=== PATIENT | female | born 1955 | race Caucasian/White ===

== ENCOUNTER 2017-10-17 00:46 | Observation (INO) ==
[2017-10-17] MEDS ORDERED: 0.9 % Sodium Chloride 1,000 ML IVC ONE (01:07)
[2017-10-17] MEDS ORDERED: Ondansetron 4 MG/2 ML VIAL IVP ONE ×2 (01:07→13:27)
[2017-10-17] MEDS ORDERED: Isovue-370 500 ML INFUS..BTL IV ONE (01:08)
--- NOTE | 2017-10-17 01:13 | Emergency Department Note ---
Disposition Clinical Impression: Nephrolithiasis UTI (urinary tract infection) Qualifiers: Urinary tract infection type: acute cystitis Hematuria presence: with hematuria Qualified Code(s): N30.01 - Acute cystitis with hematuria Disposition: Home, Self-Care Condition: Fair General Adult HPI - General Chief complaint: ED Abdominal Pain Stated complaint: urinating blood, flank pain Time Seen by Provider: 10/17/17 00:53 Source: patient Mode of arrival: ambulatory Limitations: no limitations Nursing Notes Reviewed: Yes Vital Signs Reviewed: Yes - History of Present Illness HPI Narrative: Patient is a 61-year-old female with past medical history of hypertension, diabetes, cholecystectomy, and hysterectomy presents for evaluation of left- sided flank pain and hematuria. The patient states her symptoms started yesterday morning when she noticed there was a red tinge to her urine. She also had gradual onset of left-sided flank abdominal pain that she states is a 8 /10 stabbing pain has been constant since onset. She does not notice any alleviating factors. She denies history of kidney stones. Patient denies fevers, chills, chest pain, or shortness of breath. States she had 5 episodes of emesis today, non-bloody. Pain Scale: 9 - Related Data Home Medications Medication Instructions Recorded Confirmed Fluticasone/Salmeterol [Advair 1 puff IH BID 09/17/15 10/17/17 500-50 Diskus] Lisinopril [Zestril] 40 mg PO DAILY 09/17/15 10/17/17 amLODIPine [Norvasc] 10 mg PO DAILY 09/17/15 10/17/17 buPROPion HCl [Bupropion HCl Sr] 200 mg PO BID 09/17/15 10/17/17 glyBURIDE [GlyBURIDE] 1.25 mg PO DAILY 09/17/15 10/17/17 metFORMIN [Glucophage] 500 mg PO BID 09/17/15 10/17/17 Clopidogrel [Plavix] 75 mg PO DAILY 10/17/17 10/17/17 Escitalopram [Lexapro] 10 mg PO DAILY 10/17/17 10/17/17 Gabapentin [Neurontin] 300 mg PO TID 10/17/17 10/17/17 Metoprolol Succinate 200 mg PO DAILY 10/17/17 10/17/17 Ranitidine HCl [Acid Shoe Folder] 75 mg PO BID 10/17/17 10/17/17 Rosuvastatin Calcium [Crestor] 40 mg PO HS 10/17/17 10/17/17 hydroCHLOROthiazide 25 mg PO DAILY 10/17/17 10/17/17 [Hydrochlorothiazide] Allergies Allergy/AdvReac Type Severity Reaction Status Date / Time No Known Allergies Allergy Unverified 10/17/17 16:13 All systems ED: reviewed and negative except as stated. Review of Systems: As Per HPI Constitutional: Denies: fever, chills Cardiovascular: Denies: chest pain, palpitations Respiratory: Denies: cough, dyspnea, wheezes Gastrointestinal: Reports: abdominal pain, nausea, vomiting, diarrhea (x1 episode yesterday. Normal BM today. ) Genitourinary: Reports: hematuria. Denies: urgency, dysuria, frequency Musculoskeletal: Reports: back pain (left flank) Integumentary: Denies: rash, abrasion Neurological: Denies: headache Past Medical History - Past Medical History Attestation: Yes The following information was validated with the patient. Medical history: Reports: COPD, diabetes, hyperlipidemia, hypertension Psychiatric history: Reports: no psych history - Social History Smoking Status: Current every day smoker Smokeless Tobacco Status: No Alcohol use: Reports: none Drug use: Reports: none Physical Exam CONSTITUTIONAL: Alert and oriented X3, well-nourished, well appearing, in no apparent distress HEAD: Normocephalic; atraumatic. EYES: PERRL, no scleral icterus. NOSE: The nose is normal in appearance without rhinorrhea RESP: Normal chest excursion with respiration; breath sounds clear and equal bilaterally; no wheezes, rhonchi, or rales CARD: Regular rhythm, without murmurs, rub or gallop BACK: Left flank pain. ABD: Non-distended; tenderness in the left abdomen mildly with palpation, no guarding, rebound, or rigidity. SKIN: Normal for age and race; warm and dry; no apparent lesions Course Course Narrative: Patient's CT scan reveals a 5 similar stone located at the UVJ the left. Chest is urinary tract infection given that the patient has no infection with a stone presents to be admitted for IV antibiotics with consultation to urology, Dr. Cannon. I discussed the patient's case with the hospitalist on-call and they agree to accept. Vital Signs Temperature 98.2 F 10/17/17 00:47 Pulse Rate 77 10/17/17 00:47 Respiratory Rate 18 10/17/17 00:47 Blood Pressure 183/91 10/17/17 00:47 O2 Sat by Pulse Oximetry 97 10/17/17 00:47 Temperature 98.6 F 10/17/17 23:26 Pulse Rate 77 10/17/17 23:26 Respiratory Rate 16 10/17/17 23:26 Blood Pressure 147/65 10/17/17 23:26 O2 Sat by Pulse Oximetry 90 10/17/17 23:26 Oxygen Delivery Oxygen Delivery Room Air Medical Decision Making - Medical Records Medical records reviewed: Yes I reviewed the patient's medical records. - Lab Data Lab results reviewed: Yes I reviewed the patient's lab results. Result diagrams: 10/17/17 02:00 10/17/17 02:00 Lab Results 10/17/17 10/17/17 10/17/17 Range/Units 02:00 02:00 02:40 WBC 9.2 (4.3-11.1) K/mcL RBC 4.24 (3.82-4.97) M/mcL Hgb 13.2 (11.5-15.4) g/dL Hct 39.5 (35.3-44.9) % MCV 93.2 (83.0-100.0) fL MCH 31.1 (28.0-33.3) pg MCHC 33.4 (31.6-35.5) g/dL RDW 14.6 H (11.5-14.5) % Plt Count 234 (140-400) K/mcL MPV 9.8 (9.4-12.4) fL Immature Gran % 0.2 (0-4) % Seg Neutrophils % 80.9 % Lymphocytes % 13.3 % Monocytes % 4.5 % Eosinophils % 0.8 % Basophils % 0.3 % Neutrophils # 7.5 (1.6-8.9) K/mcL Lymphocytes # 1.2 (0.6-4.6) K/mcL Monocytes # 0.4 (0.0-1.3) K/mcL Eosinophils # 0.1 (0.0-0.6) K/mcL Basophils # 0.0 (0.0-0.2) K/mcL Sodium 139 (136-145) mEq/L Potassium 4.6 (3.5-5.1) mEq/L Chloride 105 (98-107) mEq/L Carbon Dioxide 28 (23-29) mEq/L BUN 29 H (8-23) mg/dL Creatinine 1.02 (0.60-1.20) mg/dL Est GFR ( Amer) > 60 (> 60) Est GFR (Non-Af Amer) 55 L (> 60) BUN/Creatinine Ratio 28 H (6-26) Glucose 182 H (70-105) mg/dL Calculated Osmolality 298 (280-300) Calcium 9.9 (8.6-10.3) mg/dL Total Bilirubin 0.5 (0.3-1.0) mg/dL Direct Bilirubin 0.1 (0.0-0.2) mg/dL Indirect Bilirubin 0.4 (0.0-1.2) mg/dL AST 11 L (13-39) Units/L ALT 9 (7-52) Units/L Alkaline Phosphatase 58 (34-104) Units/L Serum Total Protein 7.1 (6.4-8.9) g/dL Albumin 4.4 (3.5-5.7) g/dL Globulin 2.7 (2.4-3.5) g/dL Albumin/Globulin Ratio 1.6 (1.1-2.2) Lipase 24 (11-82) Units/L Urine Color Yellow (Yellow) Urine Clarity Cloudy A (Clear) Urine pH 6.0 (5.0-8.0) pH Units Ur Specific [place] 1.023 (1.010-1.025) Urine Protein 30 H (Neg-Trace) mg/dL Urine Glucose (UA) Normal (Normal) mg/dL Urine Ketones Negative (Negative) mg/dL Urine Blood Large H (Negative) Urine Nitrite Positive A (Negative) Urine Bilirubin Negative (Negative) Urine Urobilinogen Normal (Normal) mg/dL Ur Leukocyte Esterase Large H (Negative) Urine Microscopic RBC TNTC H (0-3) per hpf Urine Microscopic WBC TNTC H (0-3) per hpf Ur Squamous Epith Cells Few (None-Few) per lpf Urine Bacteria Many H (None-Few) per hpf Hyaline Casts None Seen (None-Few) per lpf Ur Culture Indicated? YES A (NO) - Radiology Data Radiology results reviewed: Yes I reviewed the patient's radiology results. Abdomen/Pelvis CT 10/17/17 01:08 IMPRESSION: Several small (sub 5 mm) stones at left ureteropelvic junction with mild upstream hydronephrosis. Nondependent gas within the urinary bladder. Correlate for any history of instrumentation. Otherwise correlate with urinalysis to exclude cystitis. Hepatomegaly. D/ / Michael Burr / Michael Burr Interpreting Provider: Michael Burr Attestation Statement - Attestation Attestation: I examined this patient and my medical decision-making was reviewed with the Resident Physician. I agree with the documented findings, disposition and treatment plan as described except to the extent set forth below. Findings consistent with infected stone. Plan to start ceftriaxone, admitted to the hospital, consult urology. Patient will require admission for infected kidney stone.
[2017-10-17] MEDS ORDERED: *HR* FentaNYL (PF) 100 MCG/2 ML VIAL IVP ONE (01:14)
[2017-10-17 02:16] LABS: Basophils % 0.3 %; Eosinophils # 0.1 K/mcL (0.0-0.6); Eosinophils % 0.8 %; Hematocrit 39.5 % (35.3-44.9); Hemoglobin 13.2 g/dL (11.5-15.4); Immature Granulocytes % 0.2 % (0-4); Lymphocytes # 1.2 K/mcL (0.6-4.6); Lymphocytes % 13.3 %; Mean Corpuscular HGB Conc 33.4 g/dL (31.6-35.5); Mean Corpuscular Hemoglobin 31.1 pg (28.0-33.3); Mean Corpuscular Volume 93.2 fL (83.0-100.0); Mean Platelet Volume 9.8 fL (9.4-12.4); Monocytes # 0.4 K/mcL (0.0-1.3); Monocytes % 4.5 %; Neutrophils # 7.5 K/mcL (1.6-8.9); Platelet Count 234 K/mcL (140-400); Red Blood Count 4.24 M/mcL (3.82-4.97); Red Cell Distribution Width 14.6 % (11.5-14.5); Segmented Neutrophils % 80.9 %
[2017-10-17 02:40] LABS: Alanine Aminotransferase 9 Units/L (7-52); Albumin 4.4 g/dL (3.5-5.7); Albumin/Globulin Ratio 1.6 (1.1-2.2); Alkaline Phosphatase 58 Units/L (34-104); Aspartate Amino Transferase 11 Units/L (13-39); BUN/Creatinine Ratio 28 (6-26); Bilirubin,Direct 0.1 mg/dL (0.0-0.2); Bilirubin,Indirect 0.4 mg/dL (0.0-1.2); Bilirubin,Total 0.5 mg/dL (0.3-1.0); Blood Urea Nitrogen 29 mg/dL (8-23); Calcium 9.9 mg/dL (8.6-10.3); Carbon Dioxide 28 mEq/L (23-29); Chloride 105 mEq/L (98-107); Globulin 2.7 g/dL (2.4-3.5); Glucose 182 mg/dL (70-105); Lipase 24 Units/L (11-82); Osmolality,Calculated 298 (280-300); Potassium 4.6 mEq/L (3.5-5.1); Sodium 139 mEq/L (136-145); Total Protein 7.1 g/dL (6.4-8.9); eGFR For African Americans > 60 (> 60); eGFR For Non-African Americans 55 (> 60)
[2017-10-17 02:49] LABS: Bilirubin,Urine Negative (Negative); Blood,Urine Large (Negative); Clarity,Urine Cloudy (Clear); Color,Urine Yellow (Yellow); Glucose,Urine (UA) Normal (Normal); Ketones,Urine Negative (Negative); Leukocyte Esterase,Urine Large (Negative); Nitrite,Urine Positive (Negative); Protein,Urine 30 mg/dL (Neg-Trace); Specific Gravity,Urine 1.023 (1.010-1.025); Urobilinogen,Urine Normal (Normal)
[2017-10-17 02:51] LABS: Bacteria,Urine Many per hpf (None-Few); Hyaline Casts,Urine None Seen per lpf (None-Few); Squamous Epithelial Cell,Urine Few per lpf (None-Few); WBC,Urine TNTC per hpf (0-3)
[2017-10-17 03:06] LABS: RBC,Urine TNTC per hpf (0-3)
[2017-10-17] MEDS ORDERED: cefTRIAXone 1,000 MG in Water for inj. (sterile) 20 ML 10 ML IVP ONE (04:50)
[2017-10-17] MEDS ORDERED: Ketorolac 15 MG/ML VIAL IVP ONE (05:31)
[2017-10-17] MEDS ORDERED: Naloxone 0.4 MG/ML INJ IVP PRN ×2 (07:58→15:53)
[2017-10-17] MEDS ORDERED: *HR* OxyCODONE Immed Rel 5 MG TABLET PO PRN ×3 (07:58→15:53)
[2017-10-17] MEDS ORDERED: Acetaminophen 325 MG TABLET PO PRN ×2 (07:58→15:53)
[2017-10-17] MEDS ORDERED: *HR* HYDROcodone/Acet 5/325 mg TABLET PO PRN ×2 (07:58→15:53)
[2017-10-17] MEDS ORDERED: Ringers Solution, Lactated 1,000 ML IVC SCH (08:00)
[2017-10-17] MEDS ORDERED: D5% in Water 1,000 ML IVC PRN ×2 (08:00→15:53)
[2017-10-17] MEDS ORDERED: Dextrose Gel 15 GM/37.5 ML TUBE PO PRN ×4 (08:00→15:53)
[2017-10-17] MEDS ORDERED: *HR* Dextrose 50 % in Water (Syg) 50 ML SYRINGE IVP PRN ×2 (08:00→15:53)
--- NOTE | 2017-10-17 08:06 | Internal Med History&Physical ---
Date of Encounter: 10/17/17 Time of Encounter: 07:45 Internal Medicine - H&P: HPI Chief complaint: Nausea, vomiting, right-sided flank pain, hematuria Admitted From: Emergency Dept History of present illness: Ms. Gale is a 61 year old female patient with history of essential hypertension , diabetes who presented to the ER with complaints of right-sided flank pain/ lower quadrant abdominal pain 8 out of 10 in severity, along with nausea or vomiting and hematuria. She had one episode of hematuria earlier this morning. She denies any fevers or chills. No chest pain or palpitations. No hematemesis. No prior history of nephrolithiasis. Past Med Surg Social Fam HX - Past Medical History Attestation: Yes The following information was validated with the patient. Source: patient Medical history: COPD, diabetes, hyperlipidemia, hypertension Psychiatric history: no psych history - Past Surgical History Additional surgical history: pt hyst, choley - Social History Smoking Status: Current every day smoker Smokeless Tobacco Status: No Alcohol use: none Drug use: none - Additional Family History Additional family history: Family history reviewed and found to be noncontributory at this time. Internal Medicine - H&P: Meds Alendronate Sodium [Fosamax] 70 mg PO QWEEK 09/17/15 [History] Aspirin Enteric Coated [Aspirin EC] 81 mg PO DAILY 09/17/15 [History] Citalopram Hydrobromide [Celexa] 20 mg PO DAILY 09/17/15 [History] Fluticasone/Salmeterol [Advair 500-50 Diskus] 1 each IH BID 09/17/15 [History] Ipratropium/Albuterol Neb [Duoneb] 3 ml IH Q6HR PRN 09/17/15 [History] Lisinopril [Zestril] 40 mg PO DAILY 09/17/15 [History] Metoprolol Succinate 200 mg PO DAILY 09/17/15 [History] Rosuvastatin [Crestor] 20 mg PO HS 09/17/15 [History] amLODIPine [Norvasc] 10 mg PO DAILY 09/17/15 [History] buPROPion HCl [Bupropion HCl Sr] 200 mg PO BID 09/17/15 [History] glyBURIDE [GlyBURIDE] 1.25 mg PO DAILY 09/17/15 [History] metFORMIN [Glucophage] 500 mg PO BID 09/17/15 [History] Ibuprofen [Motrin] 200 mg PO Q6HR PRN 10/08/15 [History] Lansoprazole [Prevacid] 30 mg PO DAILY 10/08/15 [History] OxyCODONE/APAP 5/325 [Percocet 5/325 MG] 1 tab PO Q4-6H PRN 10/08/15 [History] Ciprofloxacin [Cipro] 500 mg PO TID #9 tablet 10/17/17 [Rx] 3 Allergy/AdvReac Type Severity Reaction Status Date / Time No Known Allergies Allergy Unverified 09/09/15 14:30 All Systems PM: A 10-system review of systems was performed and is negative for pertinent findings except as documented above in the HPI. - Constitutional Constitutional: no chills, no fever(s), no night sweats - EENT Eyes: no change in vision, no discharge, no pain, no photophobia Ears: no ear discharge, no ear pain, no tinnitus Nose, mouth and throat: no dysphagia, no nasal discharge, no neck pain, no sore throat - Cardiovascular Cardiovascular ROS IM: no chest pain, no diaphoresis, no dyspnea, no lightheadedness, no palpitations, no syncope - Respiratory Respiratory: no cough, no dyspnea, no wheezing, no excessive phlegm production - Gastrointestinal Gastrointestinal: nausea, vomiting, no abdominal pain, no diarrhea, no hematemesis, no hematochezia, no melena - Genitourinary Genitourinary: dysuria, flank pain, hematuria, no change in urinary stream - Musculoskeletal Musculoskeletal ROS IM: no numbness, no tingling - Integumentary Integumentary IM: no rash, no unusual bruising - Neurological Neurological ROS: no confusion, no convulsions, no focal weakness, no numbness, no tingling, no tremor(s) - Constitutional Vitals: Temp Pulse Resp BP Pulse Ox 98.0 F 70 14 146/82 93 10/17/17 06:57 10/17/17 06:57 10/17/17 06:57 10/17/17 06:57 10/17/17 06:57 General appearance: Present: cooperative, mild distress, A&O X 3, pleasant, obese, answers questions appropriately - Neck Neck exam general surgery: Present: supple, trachea midline. Absent: lymphadenopathy - Respiratory Respiratory exam: Present: CTAB. Absent: accessory muscle use, rales, rhonchi, wheezes - Cardiovascular Cardiovascular exam: Present: RRR, +S1, +S2. Absent: diastolic murmur, gallop, rubs, systolic murmur - GI/Abdominal GI/Abdominal exam: Present: normal bowel sounds, soft, tenderness (Right lower abdominal quadrant), no peritoneal signs. Absent: distended - Extremities Exam Extremities exam: Present: warm, radial pulses palpable and symmetrical. Absent : calf tenderness, cyanotic, pedal edema - Neurological Exam Neurological exam: Present: CN II-XII intact, oriented X3, no focal deficits. Absent: facial droop, speech deficit - Skin Skin exam: Present: dry, intact Internal Med - H&P Results - Labs CBC & Chem 7: 10/17/17 02:00 10/17/17 02:00 - Impressions Impressions Abdomen/Pelvis CT 10/17/17 01:08 IMPRESSION: Several small (sub 5 mm) stones at left ureteropelvic junction with mild upstream hydronephrosis. Nondependent gas within the urinary bladder. Correlate for any history of instrumentation. Otherwise correlate with urinalysis to exclude cystitis. Hepatomegaly. D/ / Michael Burr / Michael Burr Interpreting Provider: Michael Burr - Assessment and plan (1) Ureteral calculus, left Current Visit: Yes Status: Acute Assessment and plan: Multiple stones noted in the left urethrovesical junction with hydronephrosis. Creatinine normal at this time. Consult urology. IV fluids. Pain control and supportive care. Moderate risk for complications. (2) Essential hypertension Current Visit: Yes Status: Chronic Assessment and plan: Monitor blood pressure. Blood pressure is elevated on arrival. It is improving now. We will continue to monitor and continue home medications. (3) Diabetes mellitus, type 2 Current Visit: Yes Status: Chronic Assessment and plan: Place patient on sliding scale insulin. Diabetic diet when she is able to eat. 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 IV antibiotics. Follow culture results. Qualifiers: Urinary tract infection type: acute cystitis Hematuria presence: with hematuria Qualified Code(s): N30.01 - Acute cystitis with hematuria - Time Spent With Patient Total time spent is greater than 50% in coordination of care (as documented) at patient's floor/unit and/or counseling patient:
--- NOTE | 2017-10-17 08:34 | Urology - Consult Note ---
Date of Encounter: 10/17/17 Time of Encounter: 08:32 - Assessment and Plan (1) UTI (urinary tract infection) Current Visit: Yes Status: Acute Assessment and plan: Recommend broad-spectrum antibiotics until cultures return Qualifiers: Urinary tract infection type: acute cystitis Hematuria presence: with hematuria Qualified Code(s): N30.01 - Acute cystitis with hematuria (2) Ureteral calculus, left Current Visit: Yes Status: Acute Assessment and plan: We will plan on taking the patient to the operating room for cystoscopy and left ureteral stent placement today. Urology CN:CELESTINE Consult date: 10/17/17 Reason for consult Urology: Hydronephrosis Requesting physician: Uriel Haji History of present illness: Maggi is a 61-year-old female who presented to the emergency Department secondary to severe left-sided flank pain. She was found to have a urinalysis consistent with a UTI as well as a proximal 5 mm stone on the left side. Patient had mild to moderate hydronephrosis proximal to this. Patient's pain is okay controlled this time. No fevers. No nausea or vomiting. Past Med Surg Social Fam HX - Past Medical History Medical history: COPD, diabetes, hyperlipidemia, hypertension Psychiatric history: no psych history - Past Surgical History Additional surgical history: pt hyst, choley - Social History Smoking Status: Current every day smoker Smokeless Tobacco Status: No Alcohol use: none Drug use: none - Additional Family History Additional family history: Patient denies significant family history of kidney stones Medications and Allergies Alendronate Sodium [Fosamax] 70 mg PO QWEEK 09/17/15 [History] Aspirin Enteric Coated [Aspirin EC] 81 mg PO DAILY 09/17/15 [History] Citalopram Hydrobromide [Celexa] 20 mg PO DAILY 09/17/15 [History] Fluticasone/Salmeterol [Advair 500-50 Diskus] 1 each IH BID 09/17/15 [History] Ipratropium/Albuterol Neb [Duoneb] 3 ml IH Q6HR PRN 09/17/15 [History] Lisinopril [Zestril] 40 mg PO DAILY 09/17/15 [History] Metoprolol Succinate 200 mg PO DAILY 09/17/15 [History] Rosuvastatin [Crestor] 20 mg PO HS 09/17/15 [History] amLODIPine [Norvasc] 10 mg PO DAILY 09/17/15 [History] buPROPion HCl [Bupropion HCl Sr] 200 mg PO BID 09/17/15 [History] glyBURIDE [GlyBURIDE] 1.25 mg PO DAILY 09/17/15 [History] metFORMIN [Glucophage] 500 mg PO BID 09/17/15 [History] Ibuprofen [Motrin] 200 mg PO Q6HR PRN 10/08/15 [History] Lansoprazole [Prevacid] 30 mg PO DAILY 10/08/15 [History] OxyCODONE/APAP 5/325 [Percocet 5/325 MG] 1 tab PO Q4-6H PRN 10/08/15 [History] Ciprofloxacin [Cipro] 500 mg PO TID #9 tablet 10/17/17 [Rx] 3 Allergy/AdvReac Type Severity Reaction Status Date / Time No Known Allergies Allergy Unverified 09/09/15 14:30 Review of Systems - Constitutional no chills, no fever(s) - EENT Nose, mouth and throat: no dizziness - Cardiovascular no chest pain - Respiratory no cough, no dyspnea - Gastrointestinal abdominal pain, no nausea, no vomiting Exam Initial Vital Signs Temp Pulse Resp BP Pulse Ox 98.2 F 77 18 183/91 97 10/17/17 00:47 10/17/17 00:47 10/17/17 00:47 10/17/17 00:47 10/17/17 00:47 General/Neuological: alert and oriented x 3 Eyes: normal pupils, non-icteric Neck: no lymphadenopathy noted, supple to touch ABD: soft, nontender, no masses palpated, good bowel sounds Back: no pain on percussion bilaterally Skin: no rashes noted Musculoskeletal: normal gait, FROMx4 - General physical appearance Present: well developed Urology Results - Labs 10/17/17 02:00 10/17/17 02:00 Abnormal lab results RDW 14.6 % (11.5-14.5) H 10/17/17 02:00 BUN 29 mg/dL (8-23) H 10/17/17 02:00 Est GFR (Non-Af Amer) 55 (> 60) L 10/17/17 02:00 BUN/Creatinine Ratio 28 (6-26) H 10/17/17 02:00 Glucose 182 mg/dL (70-105) H 10/17/17 02:00 POC Glucose 150 mg/dL (70-99) H 10/17/17 06:55 AST 11 Units/L (13-39) L 10/17/17 02:00 Urine Clarity Cloudy (Clear) A 10/17/17 02:40 Urine Protein 30 mg/dL (Neg-Trace) H 10/17/17 02:40 Urine Blood Large (Negative) H 10/17/17 02:40 Urine Nitrite Positive (Negative) A 10/17/17 02:40 Ur Leukocyte Esterase Large (Negative) H 10/17/17 02:40 Urine Microscopic RBC TNTC per hpf (0-3) H 10/17/17 02:40 Urine Microscopic WBC TNTC per hpf (0-3) H 10/17/17 02:40 Urine Bacteria Many per hpf (None-Few) H 10/17/17 02:40 Ur Culture Indicated? YES (NO) A 10/17/17 02:40 All other labs normal. - Imaging CT scan - abdomen: image reviewed CT scan - pelvis: image reviewed Consult Discharge Plan - Plan Referrals: Sean Constantion, B[employer]LING [employer]ER [Primary Care Provider] -
[2017-10-17] MEDS ORDERED: Metoprolol XL (24 HR) Succ 50 MG TAB.ER.24H PO SCH (09:00)
[2017-10-17] MEDS ORDERED: Insulin LISPRO 300 UNITS/3 ML VIAL SQ SCH ×3 (12:00→21:00)
--- NOTE | 2017-10-17 12:36 | Anesthesia Evaluation PreOp ---
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: CVA (Mar 2017; weakness of LUE) Other Medical History: Diabetes Type II, GERD, Other (BMI 44) Anesthesia History: Problems (PONV) Alcohol Use: none Drug use: none Medications and Allergies Alendronate Sodium [Fosamax] 70 mg PO QWEEK 09/17/15 [History] Aspirin Enteric Coated [Aspirin EC] 81 mg PO DAILY 09/17/15 [History] Citalopram Hydrobromide [Celexa] 20 mg PO DAILY 09/17/15 [History] Fluticasone/Salmeterol [Advair 500-50 Diskus] 1 each IH BID 09/17/15 [History] Ipratropium/Albuterol Neb [Duoneb] 3 ml IH Q6HR PRN 09/17/15 [History] Lisinopril [Zestril] 40 mg PO DAILY 09/17/15 [History] Metoprolol Succinate 200 mg PO DAILY 09/17/15 [History] Rosuvastatin [Crestor] 20 mg PO HS 09/17/15 [History] amLODIPine [Norvasc] 10 mg PO DAILY 09/17/15 [History] buPROPion HCl [Bupropion HCl Sr] 200 mg PO BID 09/17/15 [History] glyBURIDE [GlyBURIDE] 1.25 mg PO DAILY 09/17/15 [History] metFORMIN [Glucophage] 500 mg PO BID 09/17/15 [History] Ibuprofen [Motrin] 200 mg PO Q6HR PRN 10/08/15 [History] Lansoprazole [Prevacid] 30 mg PO DAILY 10/08/15 [History] OxyCODONE/APAP 5/325 [Percocet 5/325 MG] 1 tab PO Q4-6H PRN 10/08/15 [History] Ciprofloxacin [Cipro] 500 mg PO TID #9 tablet 10/17/17 [Rx] 3 Allergy/AdvReac Type Severity Reaction Status Date / Time No Known Allergies Allergy Unverified 09/09/15 14:30 - Meds/Allergy Pre-op Review Medications Reviewed: Yes Allergies Reviewed: Yes Beta Blockers on Current Med List: Yes (metoprolol) If Beta Blockers taken, Date/Time (Last Dose taken): 10-17-2017 metoprolol 200 mg 10:04 Anesthesia Results - Labs 10/17/17 02:00 10/17/17 02:00 - Imaging EKG: report reviewed, image reviewed (SINUS RHYTHM LOW QRS VOLTAGE IN PRECORDIAL LEADS POSSIBLE ANTERIOR MYOCARDIAL INFARCTION, PROBABLY OLD) Anesthesia Exam Last Vital Signs Temp 98.3 F 10/17/17 10:37 Pulse 71 10/17/17 10:37 Resp 14 10/17/17 10:37 BP 128/68 10/17/17 10:37 Pulse Ox 93 10/17/17 10:37 Weight: 108 kg - HEENT Pupil (Motor): Pupils equal Mallampati: III Teeth: Edentulous Oral Opening: Greater than 3 - 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
[2017-10-17] MEDS ORDERED: *HR* FentaNYL (PF) 100 MCG/2 ML VIAL ONE (13:24)
[2017-10-17] MEDS ORDERED: *HR* Midazolam HCl 2 MG/2 ML VIAL ONE (13:25)
[2017-10-17] MEDS ORDERED: *HR* Propofol 200 MG/20 ML VIAL IVP ONE (13:25)
[2017-10-17] MEDS ORDERED: Ondansetron 4 MG/2 ML VIAL ONE (13:26)
[2017-10-17] MEDS ORDERED: Dexamethasone 4 MG/ML VIAL ONE (13:26)
[2017-10-17] MEDS ORDERED: Lidocaine -MPF 2% 2 ML VIAL ONE (13:26)
[2017-10-17] MEDS ORDERED: *HR* Labetalol 20 MG/4 ML SYRINGE IVP PRN (13:27)
[2017-10-17] MEDS ORDERED: Dexamethasone 4 MG/ML VIAL IVP ONE (13:27)
[2017-10-17] MEDS ORDERED: *HR* Promethazine 25 MG/ML VIAL IVP PRN ×2 (13:27→14:27)
[2017-10-17] MEDS ORDERED: Scopolamine Patch 1.5 MG PATCH.TD72 ONE (14:21)
[2017-10-17] MEDS ORDERED: Ketorolac 30 MG/ML VIAL ONE (14:51)
--- NOTE | 2017-10-17 14:55 | Operative Note ---
Date of procedure: 10/17/17 Pre-op diagnosis: left upj stone with uti Post-op diagnosis: same Procedure: Cystoscopy and left 6 x 26 cm ureteral stent placement Anesthesia: MYNORA Surgeon: Sammy James Was there an assistant to the ceo present: No Estimated blood loss (cc): 0 Specimen: none Condition: stable Disposition: PACU Procedure in Detail: Patient was prepped and draped in normal sterile fashion. Timeout procedure performed. I then placed the cystoscope into the patient's bladder. I then used the open ended ureteral catheter to cannulate the left ureteral orifice. I then was able to place a Glidewire into the left kidney. I then placed a 6 x 26 cm stent with good curl seen in the left kidney and in the bladder. The bladder was drained procedure was ended. Patient taken to PACU in stable condition
--- NOTE | 2017-10-17 15:41 | Anesthesia Evaluation Post Op ---
Date of Encounter: 10/17/17 Time of Encounter: 15:41 - Vital Signs Vital Signs: Last Vital Signs Temp 97.6 F 10/17/17 15:39 Pulse 64 10/17/17 15:39 Resp 18 10/17/17 15:39 BP 128/66 10/17/17 15:39 Pulse Ox 93 10/17/17 15:39 - Lungs Lungs: Clear Ascult./Percussion - Airway Airway: Non-obstructed - Cardiovascular Regular Rate - Mental Status Mental Status: Alert & Oriented, Answers Appropriately - Pain Pain Scale: 3 - Nausea Vomiting Nausea Vomiting: Not Present - Hydration Hydration: NPO - Discharge PostOp Status: Transfer Patient to floor
[2017-10-17] MEDS: Ringers Solution, Lactated 1,000 ML IVC SCH ×2 (16:01→19:38)
[2017-10-17] MEDS: Gabapentin 300 MG CAPSULE PO SCH (21:45)
[2017-10-17] MEDS: BuPROPion SR (12 HR) 100 MG TABLET PO SCH (21:45)
[2017-10-17] MEDS: Famotidine 20 MG TABLET PO SCH (21:45)
[2017-10-17] MEDS: Budesonide/Formoterol 160/4.5 MDI IH SCH (22:57)
[2017-10-18] MEDS: Ringers Solution, Lactated 1,000 ML IVC SCH (03:23)
[2017-10-18 06:12] LABS: Basophils % 0.4 %; Eosinophils % 0.1 %; Hematocrit 33.1 % (35.3-44.9); Hemoglobin 10.9 g/dL (11.5-15.4); Immature Granulocytes % 0.4 % (0-4); Lymphocytes % 12.8 %; Mean Corpuscular HGB Conc 32.9 g/dL (31.6-35.5); Mean Corpuscular Hemoglobin 29.9 pg (28.0-33.3); Mean Corpuscular Volume 90.9 fL (83.0-100.0); Mean Platelet Volume 10.1 fL (9.4-12.4); Monocytes # 0.5 K/mcL (0.0-1.3); Monocytes % 6.1 %; Neutrophils # 6.2 K/mcL (1.6-8.9); Platelet Count 202 K/mcL (140-400); Red Blood Count 3.64 M/mcL (3.82-4.97); Red Cell Distribution Width 14.6 % (11.5-14.5); Segmented Neutrophils % 80.2 %
[2017-10-18 06:31] LABS: BUN/Creatinine Ratio 34 (6-26); Blood Urea Nitrogen 26 mg/dL (8-23); Calcium 8.9 mg/dL (8.6-10.3); Carbon Dioxide 27 mEq/L (23-29); Chloride 109 mEq/L (98-107); Glucose 146 mg/dL (70-105); Osmolality,Calculated 297 (280-300); Potassium 3.8 mEq/L (3.5-5.1); Sodium 140 mEq/L (136-145); eGFR For African Americans > 60 (> 60); eGFR For Non-African Americans > 60 (> 60)
[2017-10-18] MEDS ORDERED: Insulin LISPRO 300 UNITS/3 ML VIAL SQ SCH (07:30)
--- NOTE | 2017-10-18 07:32 | Urology Progress Note ---
Date of Encounter: 10/18/17 Time of Encounter: 07:30 - Assessment and Plan (1) UTI (urinary tract infection) Current Visit: Yes Status: Acute Assessment and plan: 2 weeks of abx. Qualifiers: Urinary tract infection type: acute cystitis Hematuria presence: with hematuria Qualified Code(s): N30.01 - Acute cystitis with hematuria (2) Ureteral calculus, left Current Visit: Yes Status: Acute Assessment and plan: sp left ureteral stent. Patient will be scheduled by my office for return to the OR in 3-4 weeks. no need for f/u in office. Progress Note Narrative: POD 1 from left ureteral stent placement. patient feeling good. no fevers. Objective Initial Vital Signs Temp Pulse Resp BP Pulse Ox 98.2 F 77 18 183/91 97 10/17/17 00:47 10/17/17 00:47 10/17/17 00:47 10/17/17 00:47 10/17/17 00:47 - General physical appearance Present: well developed, well nourished - Respiratory Present: normal expansion, normal respiratory effort, clear to auscultation - Abdomen Present: soft - Integumentary Present: no rash - Labs 10/18/17 04:25 10/18/17 04:25 Diabetes panel 10/18/17 Range/Units 04:25 Sodium 140 (136-145) mEq/L Potassium 3.8 (3.5-5.1) mEq/L Chloride 109 H (98-107) mEq/L Carbon Dioxide 27 (23-29) mEq/L BUN 26 H (8-23) mg/dL Creatinine 0.76 (0.60-1.20) mg/dL Glucose 146 H (70-105) mg/dL Calcium 8.9 (8.6-10.3) mg/dL Calcium panel 10/18/17 Range/Units 04:25 Calcium 8.9 (8.6-10.3) mg/dL Pituitary panel 10/18/17 Range/Units 04:25 Sodium 140 (136-145) mEq/L Potassium 3.8 (3.5-5.1) mEq/L Chloride 109 H (98-107) mEq/L Carbon Dioxide 27 (23-29) mEq/L BUN 26 H (8-23) mg/dL Creatinine 0.76 (0.60-1.20) mg/dL Glucose 146 H (70-105) mg/dL Calcium 8.9 (8.6-10.3) mg/dL Adrenal panel 10/18/17 Range/Units 04:25 Sodium 140 (136-145) mEq/L Potassium 3.8 (3.5-5.1) mEq/L Chloride 109 H (98-107) mEq/L Carbon Dioxide 27 (23-29) mEq/L BUN 26 H (8-23) mg/dL Creatinine 0.76 (0.60-1.20) mg/dL Glucose 146 H (70-105) mg/dL Calcium 8.9 (8.6-10.3) mg/dL - VTE Documentation of Mechanical Device: Intermittent pneumatic compression device Consult Discharge Plan - Plan Referrals: Sean Constantino CNP [Primary Care Provider] -
[2017-10-18 07:34] VITALS: BP 154/83
[2017-10-18] MEDS: Budesonide/Formoterol 160/4.5 MDI IH SCH (07:45)
--- NOTE | 2017-10-18 08:24 | Discharge Summary ---
- NOTES TO OUTPATIENT PROVIDER Notes to Outpatient Provider: Pt admitted with kidney stone. Underwent stent placement and to have further urologic procedure in future. Has E coli in urine - completing course of abx Date of Encounter: 10/18/17 Time of Encounter: 08:22 - Discharge Diagnosis (1) UTI (urinary tract infection) Priority: Primary Status: Acute Assessment and Plan: Cx showing E coli. Will treat with Cipro outpatient. 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 Gale is a 61 year old female presented to ED with complaints of back pain. Found to have multiple kidney stones and subsequently admitted. Ms Gale was placed in observation. She was seen by urology and had stent placement on 10/17. She tolerated well. Today she feels well. She is urinating a lot but pain improved. She is afebrile. She has E coli in her urine culture. She is ready for discharge home on PO meds. She will have follow up surgery arranged per urology. Discharge discussed with: patient Time spent discussing smoking cessation with patient: 3 to 10 minutes - Time Spent with Patient Total time spent providing and/or coordinating discharge services: 37min - Discharge Medications Prescriptions: Ciprofloxacin HCl [Cipro] 250 mg PO BID #10 tab Home Medications: Fluticasone/Salmeterol [Advair 500-50 Diskus] 1 puff IH BID 09/17/15 [History] Lisinopril [Zestril] 40 mg PO DAILY 09/17/15 [History] amLODIPine [Norvasc] 10 mg PO DAILY 09/17/15 [History] buPROPion HCl [Bupropion HCl Sr] 200 mg PO BID 09/17/15 [History] glyBURIDE [GlyBURIDE] 1.25 mg PO DAILY 09/17/15 [History] metFORMIN [Glucophage] 500 mg PO BID 09/17/15 [History] Clopidogrel [Plavix] 75 mg PO DAILY 10/17/17 [History] Escitalopram [Lexapro] 10 mg PO DAILY 10/17/17 [History] Gabapentin [Neurontin] 300 mg PO TID 10/17/17 [History] Metoprolol Succinate 200 mg PO DAILY 10/17/17 [History] Ranitidine HCl [Acid Passenger Tire Builder] 75 mg PO BID 10/17/17 [History] Rosuvastatin Calcium [Crestor] 40 mg PO HS 10/17/17 [History] hydroCHLOROthiazide [Hydrochlorothiazide] 25 mg PO DAILY 10/17/17 [History] Ciprofloxacin HCl [Cipro] 250 mg PO BID #10 tab 10/18/17 [Rx] Allergies/Adverse Reactions: 3 Allergy/AdvReac Type Severity Reaction Status Date / Time No Known Allergies Allergy Unverified 10/17/17 16:13 Date of admission: 10/17/17 06:05 Primary care physician: Sean Constantino CNP Consults: Yolanda James Discharging clinician: Jacob Brock Anticipated date of discharge: 10/18/17 - Constitutional Vitals: Temp Pulse Resp BP Pulse Ox 97.9 F 67 16 154/83 94 10/18/17 07:33 10/18/17 07:33 10/18/17 07:45 10/18/17 07:33 10/18/17 07:45 General appearance: Present: cooperative, A&O X 3, pleasant, obese, answers questions appropriately - Head Head exam: Present: atraumatic, normocephalic - Eye Eye exam: Present: conjuntiva pink - ENT ENT exam: Present: mucous membranes moist - Respiratory Respiratory exam: Present: CTAB. Absent: rales, rhonchi, wheezes - Cardiovascular Cardiovascular exam: Present: RRR. Absent: tachycardia - GI/Abdominal GI/Abdominal exam: Present: soft. Absent: tenderness - Extremities Exam Extremities exam: Present: warm. Absent: tenderness - Neurological Exam Neurological exam: Present: alert, oriented X3, no focal deficits - Skin Skin exam: Present: dry, warm - Patient Status Disposition: Home, Self-Care Condition: Good Functional capacity at discharge: independent ambulation Overall status at discharge: patient is progressing back to baseline - Discharge Instructions Follow Up With: Sean Constantino CNP [Primary Care Provider] - Additional Instructions: Urology office to call to set up further surgery. No need to follow up in office - Diet and Activity Activity: increase activity as tolerated Diet: advance to your usual diet - VTE Documentation of Mechanical Device: Intermittent pneumatic compression device
[2017-10-18] MEDS: BuPROPion SR (12 HR) 100 MG TABLET PO SCH (08:43)
[2017-10-18] MEDS: Famotidine 20 MG TABLET PO SCH (08:50)
[2017-10-18] MEDS: Gabapentin 300 MG CAPSULE PO SCH (08:50)
[2017-10-18] MEDS ORDERED: Metoprolol XL (24 HR) Succ 50 MG TAB.ER.24H PO SCH (09:00)
[2017-10-18] MEDS ORDERED: cefTRIAXone 1,000 MG in 0.9 % Sodium Chloride Mini Bag 100 ML IVPB SCH (09:00)
[2017-10-18] MEDS ORDERED: amLODIPine 5 MG TABLET PO SCH (09:00)
== END 2017-10-18 12:05 | disposition home or self-care (01) ==
LOC: 3ANU 00:46 → EMEROO 00:46 → SUATTDRO 06:05 → 3ANU 06:19
PROVIDERS: ADMIT Family Medicine; ATTEND Internal Medicine

== ENCOUNTER 2018-12-27 08:29 | Inpatient (IN) ==
[2018-12-27] MEDS ORDERED: 0.9 % Sodium Chloride 2,000 ML ONE (08:55)
[2018-12-27] MEDS ORDERED: *HR* FentaNYL (PF) 100 MCG/2 ML VIAL IVP ONE (08:59)
[2018-12-27] MEDS ORDERED: 0.9 % Sodium Chloride 1,000 ML IVC ONE (08:59)
[2018-12-27] MEDS ORDERED: Pantoprazole 40 MG VIAL IVP ONE (08:59)
[2018-12-27] MEDS ORDERED: Octreotide 50 MCG/ML INJ IVP ONE ×2 (08:59→09:30)
[2018-12-27] MEDS ORDERED: Isovue-370 500 ML BOTTLE IVP ONE ×2 (09:10→09:38)
[2018-12-27 09:21] LABS: Basophils % 0.3 %; Eosinophils # 0.2 K/mcL (0.0-0.6); Eosinophils % 1.9 %; Hematocrit 29.3 % (35.3-44.9); Hemoglobin 9.3 g/dL (11.5-15.4); Immature Granulocytes % 0.5 % (0-4); Lymphocytes % 31.8 %; Mean Corpuscular HGB Conc 31.7 g/dL (31.6-35.5); Mean Corpuscular Hemoglobin 28.7 pg (28.0-33.3); Mean Corpuscular Volume 90.4 fL (83.0-100.0); Monocytes # 0.7 K/mcL (0.0-1.3); Monocytes % 7.1 %; Neutrophils # 5.4 K/mcL (1.6-8.9); Platelet Count 223 K/mcL (140-400); Red Blood Count 3.24 M/mcL (3.82-4.97); Red Cell Distribution Width 13.6 % (11.5-14.5); Segmented Neutrophils % 58.4 %; White Blood Count 9.3 K/mcL (4.3-11.1)
[2018-12-27 09:50] LABS: Alanine Aminotransferase 15 Units/L (7-52); Albumin 3.3 g/dL (3.5-5.7); Albumin/Globulin Ratio 1.5 (1.1-2.2); Alkaline Phosphatase 54 Units/L (34-104); Aspartate Amino Transferase 12 Units/L (13-39); BUN/Creatinine Ratio 51 (6-26); Bilirubin,Total 0.3 mg/dL (0.3-1.0); Blood Urea Nitrogen 36 mg/dL (8-23); Calcium 8.6 mg/dL (8.6-10.3); Carbon Dioxide 26 mEq/L (23-29); Chloride 105 mEq/L (98-107); Globulin 2.2 g/dL (2.4-3.5); Glucose 311 mg/dL (70-105); Lipase 14 Units/L (11-82); Osmolality,Calculated 310 (280-300); Potassium 3.9 mEq/L (3.5-5.1); Sodium 140 mEq/L (136-145); Total Protein 5.5 g/dL (6.4-8.9); Troponin I < 0.03 ng/mL (< 0.04); eGFR For African Americans > 60 (> 60); eGFR For Non-African Americans > 60 (> 60)
[2018-12-27 10:10] LABS: INR 1.1; Prothrombin Time 12.6 Seconds (9.4-12.1)
[2018-12-27 10:13] LABS: Activated Partial Thrombo Time 25.6 Seconds (26.0-36.0)
--- NOTE | 2018-12-27 10:40 | Emergency Department Note ---
Disposition Clinical Impression: Descending thoracic aortic dissection GI bleed Qualifiers: GI bleed type/associated pathology: melena Qualified Code(s): K92.1 - Melena Disposition: Admitted As Inpatient Condition: Good Time of Disposition: 10:38 General Adult HPI - General Chief complaint: ED Syncope Stated complaint: syncope Time Seen by Provider: 12/27/18 08:33 Source: patient, EMS Limitations: no limitations Nursing Notes Reviewed: Yes Vital Signs Reviewed: Yes - History of Present Illness HPI Narrative: 63 year old female presents ot the ED with complaints of vomitting dark emesis and otherwise has a history of egipastric pain and may have peptic ulcers. Issac tates that she had syncopal episode soon there after and found herself on the bathroom floor and appers to be pale on exam and state that she also have been having black sstool that is diaarhe in formation. Patient state taht she has not had a GI bleed in the past but appears to be on plavix therapy. Issac states that she has edmar a colonscopy in the past but is unaware of her results. Issac stats taht she is experiencing intense epigastic pain that radiates diffusely into the rest of her abodmen and back. Denies fevers, but is feel weak and fatigue. The pain is crampy and intense an dnothing is making it better or worse Pain Scale: 0 - Related Data Home Medications Medication Instructions Recorded Confirmed Fluticasone/Salmeterol [Advair 1 puff IH BID 09/17/15 11/08/17 500-50 Diskus] Lisinopril [Zestril] 40 mg PO DAILY 09/17/15 11/08/17 amLODIPine [Norvasc] 10 mg PO DAILY 09/17/15 11/08/17 metFORMIN [Glucophage] 500 mg PO BID 09/17/15 11/08/17 Clopidogrel [Plavix] 75 mg PO DAILY 10/17/17 11/08/17 Escitalopram [Lexapro] 10 mg PO DAILY 10/17/17 11/08/17 Gabapentin [Neurontin] 300 mg PO TID 10/17/17 11/08/17 Metoprolol Succinate 200 mg PO DAILY 10/17/17 11/08/17 Ranitidine HCl [Acid Classroom Assistant] 75 mg PO BID 10/17/17 11/08/17 Rosuvastatin Calcium [Crestor] 40 mg PO HS 10/17/17 11/08/17 hydroCHLOROthiazide 25 mg PO DAILY 10/17/17 11/08/17 [Hydrochlorothiazide] Previous Rx's Medication Instructions Recorded HYDROcodone/Acet 5/325 mg [[place] 1 tab PO Q6H PRN 3 Days #12 tab 11/08/17 5-325 mg] Allergies Allergy/AdvReac Type Severity Reaction Status Date / Time No Known Allergies Allergy Verified 11/08/17 06:45 Constitutional: Reports: weakness. Denies: fever, chills, weight change Eyes: Denies: eye pain, eye discharge, vision change ENT ED: Denies: ear pain, throat pain, dental pain, hearing loss, epistaxis, congestion, dysphagia Cardiovascular: Denies: chest pain, palpitations, dyspnea on exertion, edema, syncope Respiratory: Denies: cough, dyspnea, wheezes, hemoptysis, stridor Gastrointestinal: Reports: abdominal pain, nausea, vomiting, hematemesis, melena. Denies: diarrhea, constipation, hematochezia Genitourinary: Denies: dysuria, frequency, hematuria, discharge Musculoskeletal: Denies: back pain, neck pain, arthralgia, myalgia Integumentary: Denies: rash, abrasion, lesions Neurological: Denies: headache, weakness, numbness, paresthesias, confusion, abnormal gait, vertigo Psychiatric: Denies: anxiety, depression, suicidal thoughts, homicidal thoughts, auditory hallucinations, visual hallucinations Endocrine: Denies: fatigue Hematological/Lymphatic: Denies: easy bleeding, easy bruising Allergic/Immunologic: Denies: facial swelling, urticaria Past Medical History - Past Medical History Medical history: Reports: COPD, diabetes, hyperlipidemia, hypertension, kidney stones, osteoporosis Surgical history: Reports: cholecystectomy, herniorrhaphy, hysterectomy, ureteral stent, other Psychiatric history: Reports: no psych history METERMAN history: Reports: no METERMAN history - Social History Smoking Status: Former smoker Smokeless Tobacco Status: No Alcohol use: Reports: none Drug use: Reports: none Physical Exam - General Limitations: no limitations General appearance: alert - Head Head exam: atraumatic, normocephalic, normal inspection - Eye Eye exam: Present: normal appearance, PERRL, EOMI - Expanded Eye Exam Pupils: Bilateral: reactive - ENT ENT exam: normal exam, normal oropharynx, mucous membranes moist - Expanded ENT Exam External ear exam: Present: normal external inspection Mouth exam: Present: normal external inspection Teeth exam: Present: normal inspection Throat exam: Present: normal inspection - Neck Neck exam: Present: normal inspection, full ROM, trachea midline - Chest Chest inspection: Present: normal inspection, symmetric chest wall rise - Respiratory Respiratory exam: Present: normal lung sounds bilaterally - Cardiovascular Cardiovascular exam: Present: regular rate, normal rhythm, normal heart sounds - Abdominal Exam Abdominal exam: Present: soft, tenderness, normal bowel sounds, other (no periotneal signs of hernia on exam). Absent: distention, guarding, rebound, rigidity Abdominal tenderness: Present: epigastrium, moderate - Extremities Exam Extremities exam: Present: normal inspection, full ROM. Absent: tenderness, pedal edema - Expanded Upper Extremity Exam Shoulder exam: Present: normal inspection, full ROM Arm exam: Present: normal inspection, full ROM Elbow exam: Present: normal inspection, full ROM Forearm/Wrist exam: Present: normal inspection, full ROM Hand exam: Present: normal inspection, full ROM Vascular exam: Normal: capillary refill, radial pulse - Expanded Lower Extremity Exam Hip/Pelvis exam: Present: normal inspection, full ROM Upper leg exam: Present: normal inspection, full ROM Knee exam: Present: normal inspection, full ROM Lower leg exam: Present: normal inspection, full ROM Ankle exam: Present: normal inspection, full ROM Foot/toe exam: Present: normal inspection, full ROM Neurovascular/Tendon exam: Absent: motor deficit, sensory deficit, tendon deficit - Back Exam Back exam: Present: normal inspection, full ROM. Absent: tenderness - Neurological Exam Neurological exam: Present: alert, oriented X3 - Expanded Neurological Exam Patient oriented to: Present: person, place, time Coma Scale Eye Opening: Spontaneous Coma Scale Motor Response: Obeys Commands Coma Scale Verbal Response: Oriented Coma Scale Total: 15 - Psychiatric Psychiatric exam: Present: normal affect, normal mood - Skin Skin exam: Present: warm, dry, intact, normal color Course Course Narrative: I will do an abdominal workup for GI bleed and treat with protonix and octreotid e at this time. Where she does not have esophageal varcies I will not give rocephin therapy at this time. PLan to admit for GI bleed, and her stool appear to be very positive for blood and will tranfuse as needed. - Consultations Consultation #1: discussed case wit Dr. Santiago and he will see issac in consult if needed, but does not need immeadiate surgical attention at this time. Time: 10:37 Consultation #2: discussed case with Dr. Steele who will see rené granado consult Time: 10:37 Consultation #3: discussed case wit Dr. Brock and she accepts issac ot medicine service Time: 10:47 Vital Signs Temperature 97.7 F 12/27/18 08:37 Pulse Rate 83 12/27/18 08:37 Respiratory Rate 18 12/27/18 08:37 Blood Pressure 149/58 12/27/18 08:37 O2 Sat by Pulse Oximetry 97 12/27/18 08:37 Temperature 97.7 F 12/27/18 11:55 Pulse Rate 77 12/27/18 11:55 Respiratory Rate 18 12/27/18 11:55 Blood Pressure 160/93 12/27/18 11:55 O2 Sat by Pulse Oximetry 98 12/27/18 11:55 Oxygen Delivery Oxygen Delivery Room Air Medical Decision Making - Medical Records Medical records reviewed: Yes I reviewed the patient's medical records. - Lab Data Lab results reviewed: Yes I reviewed the patient's lab results. Result diagrams: 12/27/18 09:03 12/27/18 09:03 Lab Results 12/27/18 12/27/18 12/27/18 Range/Units 09:03 09:03 09:03 WBC 9.3 (4.3-11.1) K/mcL RBC 3.24 L (3.82-4.97) M/mcL Hgb 9.3 L (11.5-15.4) g/dL Hct 29.3 L (35.3-44.9) % MCV 90.4 (83.0-100.0) fL MCH 28.7 (28.0-33.3) pg MCHC 31.7 (31.6-35.5) g/dL RDW 13.6 (11.5-14.5) % Plt Count 223 (140-400) K/mcL MPV 9.0 L (9.4-12.4) fL Immature Gran % 0.5 (0-4) % Seg Neutrophils % 58.4 % Lymphocytes % 31.8 % Monocytes % 7.1 % Eosinophils % 1.9 % Basophils % 0.3 % Neutrophils # 5.4 (1.6-8.9) K/mcL Lymphocytes # 3.0 (0.6-4.6) K/mcL Monocytes # 0.7 (0.0-1.3) K/mcL Eosinophils # 0.2 (0.0-0.6) K/mcL Basophils # 0.0 (0.0-0.2) K/mcL PT (9.4-12.1) Seconds INR APTT (26.0-36.0) Seconds Sodium 140 (136-145) mEq/L Potassium 3.9 (3.5-5.1) mEq/L Chloride 105 (98-107) mEq/L Carbon Dioxide 26 (23-29) mEq/L BUN 36 H (8-23) mg/dL Creatinine 0.71 (0.60-1.20) mg/dL Est GFR ( Amer) > 60 (> 60) Est GFR (Non-Af Amer) > 60 (> 60) BUN/Creatinine Ratio 51 H (6-26) Glucose 311 H (70-105) mg/dL Calculated Osmolality 310 H (280-300) Calcium 8.6 (8.6-10.3) mg/dL Total Bilirubin 0.3 (0.3-1.0) mg/dL AST 12 L (13-39) Units/L ALT 15 (7-52) Units/L Alkaline Phosphatase 54 (34-104) Units/L Troponin I < 0.03 (< 0.04) ng/mL Serum Total Protein 5.5 L (6.4-8.9) g/dL Albumin 3.3 L (3.5-5.7) g/dL Globulin 2.2 L (2.4-3.5) g/dL Albumin/Globulin Ratio 1.5 (1.1-2.2) Lipase 14 (11-82) Units/L Vitamin B12 (250-1100) pg/mL Folate (3.0-16.0) ng/mL Blood Type A POSITIVE Antibody Screen NEGATIVE Crossmatch See Detail 12/27/18 12/27/18 Range/Units 09:03 09:42 WBC (4.3-11.1) K/mcL RBC (3.82-4.97) M/mcL Hgb (11.5-15.4) g/dL Hct (35.3-44.9) % MCV (83.0-100.0) fL MCH (28.0-33.3) pg MCHC (31.6-35.5) g/dL RDW (11.5-14.5) % Plt Count (140-400) K/mcL MPV (9.4-12.4) fL Immature Gran % (0-4) % Seg Neutrophils % % Lymphocytes % % Monocytes % % Eosinophils % % Basophils % % Neutrophils # (1.6-8.9) K/mcL Lymphocytes # (0.6-4.6) K/mcL Monocytes # (0.0-1.3) K/mcL Eosinophils # (0.0-0.6) K/mcL Basophils # (0.0-0.2) K/mcL PT 12.6 H (9.4-12.1) Seconds INR 1.1 APTT 25.6 L (26.0-36.0) Seconds Sodium (136-145) mEq/L Potassium (3.5-5.1) mEq/L Chloride (98-107) mEq/L Carbon Dioxide (23-29) mEq/L BUN (8-23) mg/dL Creatinine (0.60-1.20) mg/dL Est GFR ( Amer) (> 60) Est GFR (Non-Af Amer) (> 60) BUN/Creatinine Ratio (6-26) Glucose (70-105) mg/dL Calculated Osmolality (280-300) Calcium (8.6-10.3) mg/dL Total Bilirubin (0.3-1.0) mg/dL AST (13-39) Units/L ALT (7-52) Units/L Alkaline Phosphatase (34-104) Units/L Troponin I (< 0.04) ng/mL Serum Total Protein (6.4-8.9) g/dL Albumin (3.5-5.7) g/dL Globulin (2.4-3.5) g/dL Albumin/Globulin Ratio (1.1-2.2) Lipase (11-82) Units/L Vitamin B12 177 L (250-1100) pg/mL Folate 9.7 (3.0-16.0) ng/mL Blood Type Antibody Screen Crossmatch - Radiology Data Radiology results reviewed: Yes I reviewed the patient's radiology results. - EKG Data EKG #1 EKG attestation: Yes I reviewed and interpreted this EKG. EKG results narrative: NSR with rate of 76. NO STEMI. normal intervals. no change from 11/03/18. 0010
[2018-12-27] MEDS ORDERED: 0.9 % Sodium Chloride 250 ML IVC SCH ×2 (11:15→11:30)
[2018-12-27] MEDS ORDERED: Ondansetron 4 MG/2 ML VIAL IVP PRN (11:19)
[2018-12-27] MEDS ORDERED: Naloxone 0.4 MG/ML INJ IVP PRN (11:19)
--- NOTE | 2018-12-27 11:23 | Internal Med History&Physical ---
Date of Encounter: 12/27/18 Time of Encounter: 10:55 Internal Medicine - H&P: HPI Chief complaint: passed out Admitted From: Emergency Dept Plans for Post Hospital Care: Home History of present illness: Ms. Gale is a 63 year old female with hx of HTN and HLD presented to ED after syncopal episode. She has been found to have GI bleed and admitted. Ms Gale presented to ED today after syncopal episode this AM. History at this time is limited due to patient's overall condition (actively bleeding). She was up in bathroom and found herself on the floor. Does not remember prodrome. Has not been ill recently. No fever or chills. Has had some epigastric discomfort and dark liquidy stool today. Says she has hx of ulcer and was placed on Zantac but does not remember having an EGD in the past. Does remember having colonoscopy but not the results. She is currently on Plavix but no other anticoagulant. At the time of my exam she is feeling "terrible." She is vomiting dark red liquid and has had bouts of melena. She is not tachycardic but is tachypneic. She is unable to give me much more history due to vomiting. NG about to be placed. Past Med Surg Social Fam HX - Past Medical History Medical history: COPD, diabetes, hyperlipidemia, hypertension, kidney stones, osteoporosis Additional medical history: osteoporosis Psychiatric history: no psych history - Past Surgical History Surgical History: cholecystectomy, herniorrhaphy, hysterectomy, ureteral stent, other Additional surgical history: PARTIAL HYSTER, LAPAROSCOPY, MARYBETH OPEN CARPAL & GUYON TUNNEL - Social History Smoking Status: Former smoker Smokeless Tobacco Status: No Alcohol use: none Drug use: none - Additional Family History Additional family history: HTN in family Internal Medicine - H&P: Meds Fluticasone/Salmeterol [Advair 500-50 Diskus] 1 puff IH BID 09/17/15 [History] Lisinopril [Zestril] 40 mg PO DAILY 09/17/15 [History] amLODIPine [Norvasc] 10 mg PO DAILY 09/17/15 [History] metFORMIN [Glucophage] 500 mg PO BID 09/17/15 [History] Clopidogrel [Plavix] 75 mg PO DAILY 10/17/17 [History] Escitalopram [Lexapro] 10 mg PO DAILY 10/17/17 [History] Gabapentin [Neurontin] 300 mg PO TID 10/17/17 [History] Metoprolol Succinate 200 mg PO DAILY 10/17/17 [History] Ranitidine HCl [Acid Checkout Supervisor] 75 mg PO BID 10/17/17 [History] Rosuvastatin Calcium [Crestor] 40 mg PO HS 10/17/17 [History] hydroCHLOROthiazide [Hydrochlorothiazide] 25 mg PO DAILY 10/17/17 [History] HYDROcodone/Acet 5/325 mg [[place] 5-325 mg] 1 tab PO Q6H PRN 3 Days #12 tab 11/08/17 [Rx] Allergy/AdvReac Type Severity Reaction Status Date / Time No Known Allergies Allergy Verified 11/08/17 06:45 ROS unobtainable: other (Limited due to patient's current clinical condition.) All Systems PM: A 10-system review of systems was performed and is negative for pertinent findings except as documented above in the HPI. - Constitutional Constitutional: fatigue - EENT Eyes: no diplopia, no loss of vision Ears: no decreased hearing Nose, mouth and throat: dry mouth - Cardiovascular Cardiovascular ROS IM: dyspnea, no chest pain - Respiratory Respiratory: dyspnea - Gastrointestinal Gastrointestinal: abdominal pain, melena, vomiting - Genitourinary Genitourinary: no difficulty urinating - Musculoskeletal Musculoskeletal ROS IM: no joint swelling - Integumentary Integumentary IM: no rash - Neurological Neurological ROS: as per HPI, weakness (diffuse), no vertigo - Endocrine Endocrine IM: no excessive sweating - Hematologic/Lymphatic Hematologic/Lymphatic: easy bleeding (takes Plavix) - Allergic/Immunologic Allergic/Immunologic: no itchy eyes - Constitutional Vitals: Temp Pulse Resp BP Pulse Ox 97.7 F 83 18 149/58 97 12/27/18 08:37 12/27/18 08:37 12/27/18 08:37 12/27/18 08:37 12/27/18 08:37 General appearance: Present: A&O X 3, answers questions appropriately Exam: See below - Head Head exam: Present: atraumatic, normocephalic - Eye Eye exam: Present: EOMI, conjuntiva pink - ENT ENT exam: Present: mucous membranes dry - Neck Neck exam general surgery: Present: normal inspection, supple - Respiratory Respiratory exam: Present: decreased breath sounds, CTAB Additional comments: Difficult exam due to emesis - Cardiovascular Cardiovascular exam: Present: RRR. Absent: tachycardia - GI/Abdominal GI/Abdominal exam: Present: soft, tenderness (midepigastric), no peritoneal signs - Extremities Exam Extremities exam: Present: warm. Absent: tenderness - Neurological Exam Neurological exam: Present: alert, oriented X3, no focal deficits - Skin Skin exam: Present: pallor Internal Med - H&P Results - Labs CBC & Chem 7: 12/27/18 09:03 12/27/18 09:03 Labs: Short CBC 12/27/18 Range/Units 09:03 WBC 9.3 (4.3-11.1) K/mcL Hgb 9.3 L (11.5-15.4) g/dL Hct 29.3 L (35.3-44.9) % Plt Count 223 (140-400) K/mcL Neutrophils # 5.4 (1.6-8.9) K/mcL BMP 12/27/18 09:03 Sodium 140 Potassium 3.9 Chloride 105 Carbon Dioxide 26 BUN 36 H Creatinine 0.71 Glucose 311 H Calcium 8.6 Cardiac Enzymes 12/27/18 Range/Units 09:03 Troponin I < 0.03 (< 0.04) ng/mL Liver Function 12/27/18 Range/Units 09:03 Total Bilirubin 0.3 (0.3-1.0) mg/dL AST 12 L (13-39) Units/L ALT 15 (7-52) Units/L Alkaline Phosphatase 54 (34-104) Units/L Albumin 3.3 L (3.5-5.7) g/dL - Impressions ITS Impressions Chest X-Ray 12/27/18 08:38 IMPRESSION: 1. No active pulmonary disease. D/ / Kyle Bradley MD / Kyle Bradley MD Interpreting Provider: Kyle Bradley MD Head CT 12/27/18 08:38 IMPRESSION: No acute intracranial abnormality. Sequela of chronic small vessel ischemic disease with a remote infarct involving the anterior limb internal capsule on the right. D/ / Morris Pedroza MD / Morris Pedroza MD Interpreting Provider: Morris Pedroza MD Abdomen/Pelvis CTA 12/27/18 09:10 IMPRESSION: 1. There is no evidence of active extravasation in the gastrointestinal tract to suggest arterial gastrointestinal bleeding. 2. A focal area of aortic dissection can be seen in the descending thoracic aorta without significant aneurysmal dilatation. 3. No evidence of abdominal aortic dissection or aneurysm. Mesenteric and renal circulation appear normal. 4. Fatty infiltration of the liver. 5. No evidence of acute gastrointestinal abnormality. 6. Incidental Pulmonary nodule in the right middle lobe measuring 6.4 mm that needs follow-up. RECOMMENDATIONS: Fleischner Society guidelines for follow-up and management of incidentally detected pulmonary nodules: Single Solid Nodule: Nodule size less than 6 mm In a low-risk patient, no routine follow-up. In a high-risk patient, optional CT at 12 months. Nodule size equals 6-8 mm In a low-risk patient, CT at 6-12 months, then consider CT at 18-24 months. In a high-risk patient, CT at 6-12 months, then CT at 18-24 months. Nodule size greater than 8 mm In a low-risk patient, consider CT at 3 months, PET/CT, or tissue sampling. In a high-risk patient, consider CT at 3 months, PET/CT, or tissue sampling. Multiple Solid Nodules: Nodule size less than 6 mm In a low-risk patient, no routine follow-up. In a high-risk patient, optional CT at 12 months. Nodule size equals 6-8 mm In a low-risk patient, CT at 3-6 months, then consider CT at 18-24 months. In a high-risk patient, CT at 3-6 months, then CT at 18-24 months. Nodule size greater than 8 mm In a low-risk patient, CT at 3-6 months, then consider CT at 18-24 months. In a high-risk patient, CT at 3-6 months, then CT at 18-24 months. - Low risk patients include individuals with minimal or absent history of smoking and other known risk factors. - High risk patients include individuals with a history or smoking or known risk factors. Radiology 2017 http://pubs.rsna.org/doi/full/10.1148/radiol.[email or web address] D/ / Mallory Turner MD / Mallory Turner MD Interpreting Provider: Mallory Turner MD Chest CTA 12/27/18 09:10 IMPRESSION: 1. There is no evidence of active extravasation in the gastrointestinal tract to suggest arterial gastrointestinal bleeding. 2. A focal area of aortic dissection can be seen in the descending thoracic aorta without significant aneurysmal dilatation. 3. No evidence of abdominal aortic dissection or aneurysm. Mesenteric and renal circulation appear normal. 4. Fatty infiltration of the liver. 5. No evidence of acute gastrointestinal abnormality. 6. Incidental Pulmonary nodule in the right middle lobe measuring 6.4 mm that needs follow-up. RECOMMENDATIONS: Fleischner Society guidelines for follow-up and management of incidentally detected pulmonary nodules: Single Solid Nodule: Nodule size less than 6 mm In a low-risk patient, no routine follow-up. In a high-risk patient, optional CT at 12 months. Nodule size equals 6-8 mm In a low-risk patient, CT at 6-12 months, then consider CT at 18-24 months. In a high-risk patient, CT at 6-12 months, then CT at 18-24 months. Nodule size greater than 8 mm In a low-risk patient, consider CT at 3 months, PET/CT, or tissue sampling. In a high-risk patient, consider CT at 3 months, PET/CT, or tissue sampling. Multiple Solid Nodules: Nodule size less than 6 mm In a low-risk patient, no routine follow-up. In a high-risk patient, optional CT at 12 months. Nodule size equals 6-8 mm In a low-risk patient, CT at 3-6 months, then consider CT at 18-24 months. In a high-risk patient, CT at 3-6 months, then CT at 18-24 months. Nodule size greater than 8 mm In a low-risk patient, CT at 3-6 months, then consider CT at 18-24 months. In a high-risk patient, CT at 3-6 months, then CT at 18-24 months. - Low risk patients include individuals with minimal or absent history of smoking and other known risk factors. - High risk patients include individuals with a history or smoking or known risk factors. Radiology 2017 http://pubs.rsna.org/doi/full/10.1148/radiol.6102730878 D/ / Mallory Turner MD / Mallory Turner MD Interpreting Provider: Mallory Turner MD - Assessment and Plan (1) Gastrointestinal hemorrhage with melena Current Visit: Yes Status: Acute Assessment and plan: Pt presented to ED with complaints of syncope related to acute UGI bleed with melena and hematemesis. Admit to 2N IV fluids. Transfuse 4 units PRBCs followed by FFP and platelets. Hold PO meds for now. PPI infusion GI consult - will need EGD. (2) Syncope Current Visit: Yes Status: Suspected Assessment and plan: Pt presented with syncopal episode. Appears related to GI bleed. Qualifiers: Syncope type: vasovagal syncope Qualified Code(s): R55 - Syncope and collapse (3) Descending thoracic aortic dissection Current Visit: Yes Status: Acute Assessment and plan: Pt has focal area of dissection of thoracic aneurysm on CTA with no evidence of arterial bleeding seen. Vascular surgery has been contacted. (4) Diabetes mellitus, type 2 Current Visit: No Status: Chronic Assessment and plan: Accuchecks and coverage ordered. Qualifiers: Diabetes mellitus manager terminal insulin use: without manager terminal use Diabetes mellitus complication status: with hyperglycemia Qualified Code(s): E11.65 - Type 2 diabetes mellitus with hyperglycemia (5) Essential hypertension Current Visit: No Status: Chronic Assessment and plan: Controlled at this time. PO meds on hold. (6) Morbid obesity with BMI of 40.0-44.9, adult Current Visit: Yes Status: Chronic Assessment and plan: Chronic issue. - Time Spent With Patient Total time spent is greater than 50% in coordination of care (as documented) at patient's floor/unit and/or counseling patient:
[2018-12-27] MEDS ORDERED: *HR* Dextrose 50 % in Water (Syg) 50 ML SYRINGE IVP PRN (11:39)
[2018-12-27] MEDS ORDERED: Dextrose Gel 15 GM/37.5 ML TUBE PO PRN ×2 (11:39)
[2018-12-27] MEDS ORDERED: D5% in Water 1,000 ML IVC PRN (11:39)
[2018-12-27 11:57] LABS: Folate 9.7 ng/mL (3.0-16.0)
[2018-12-27] MEDS ORDERED: Furosemide 20 MG/2 ML VIAL IVP ONE (12:24)
--- NOTE | 2018-12-27 12:25 | Gastroenterology Consult Note ---
Date of Encounter: 12/27/18 Time of Encounter: 11:45 - Time Spent With Patient Total time spent is greater than 50% in coordination of care (as documented) at patient's floor/unit and/or counseling patient: GI History of Present Illness - Data of Consult Patient: new to practice Consult date: 12/27/18 Requesting Physician: Jacob Brock, DO - Consult Narrative Reason for consult: GI bleed History of present illness: Ms. Gale is a 63 year old female with PMHx of COPD, DM, HLD, HTN, who presented to the ED after syncopal episode. She reports being up in bathroom and then found herself on the floor, covered in blood. She reports several episodes of hematemesis. She also reports some epigastric pain and dark stools. She reports history of an ulcer and was started on Zantac. She reports having a colonoscopy in past, but is unsure of the results. On admission Hgb 9.3 and fecal occult blood test positive in ED. CTA abdomen and pelvis shows no evidence of active extravasation in the gastrointestinal tract to suggest arterial gastrointestinal bleeding, focal area of aortic dissection can be seen in the descending thoracic aorta without significant aneurysmal dilatation, no evidence of abdominal aortic dissection or aneurysm, and fatty liver. NG tube placed in ED with about 500 ml dark, bloody drainage per RN. On admission Hgb 9.3 with MCV 90.4 and BUN 36. Hgb 10.9 on 10/18/2017. Procedures: EGD 03/22/2009 Dr. Engle: Gastritis, H. pylori negative. NSAIDs: None Anticoagulation: Plavix A/P 1. GI Bleed with Melena: Pt with melena and hematemesis on admission. NG tube inserted in ED. Hgb 9.3 with MCV 90.4 and BUN 36. Continue to monitor CBC and recommend transfusing 4 units PRBC. Check iron profile, vitamin B12, folate, ferritin Plan for EGD today to r/o esophagitis, gastritis, duodenitis, PUD, MW tear, or AVM. Keep patient NPO for scope. Continue PPI drip. 2. Thoracic aortic dissection: Vascular surgery has been consulted. Past Med Surg Social Fam HX - Past Medical History Medical history: COPD, diabetes, hyperlipidemia, hypertension, kidney stones, osteoporosis Additional medical history: osteoporosis Psychiatric history: no psych history - Past Surgical History Surgical History: cholecystectomy, herniorrhaphy, hysterectomy, ureteral stent, other Additional surgical history: PARTIAL HYSTER, LAPAROSCOPY, MARYBETH OPEN CARPAL & GUYON TUNNEL - Social History Smoking Status: Former smoker Smokeless Tobacco Status: No Alcohol use: none Drug use: none - Gastrointestinal Gastrointestinal: Present: as per HPI - Constitutional Constitutional: as per HPI - EENT Eyes: as per HPI Ears: Present: as per HPI Nose, mouth and throat: Present: as per HPI - Cardiovascular Cardiovascular ROS: Present: as per HPI - Respiratory Respiratory IM: Present: as per HPI - Genitourinary Genitourinary: Absent: change in color, Urinary frequency - Neurological ROS Neurological GI: Present: as per HPI - Hematologic/Lymphatic Hematologic/Lymphatic pediatric: Present: as per HPI - Musculoskeletal Musculoskeletal ROS GI: Present: as per HPI - Integumentary Integumentary GI: Present: as per HPI - Psychiatric ROS Psychiatric GI: Present: as per HPI - Endocrine Endocrine IM: Present: as per HPI - Constitutional Vitals: Temp Pulse Resp BP Pulse Ox 97.7 F 77 18 160/93 98 12/27/18 11:55 12/27/18 11:55 12/27/18 11:55 12/27/18 11:55 12/27/18 11:55 General appearance: Present: cooperative, A&O X 3, no acute distress, answers questions appropriately - Head Head exam: Present: atraumatic, normocephalic - Eye Eye exam: Present: normal appearance, sclera anicteric - ENT ENT exam: Present: mucous membranes dry - Neck Neck exam general surgery: Present: normal inspection, trachea midline - Respiratory Respiratory exam: Present: decreased breath sounds, CTAB. Absent: rales, rhonchi, wheezes - Cardiovascular Cardiovascular exam: Present: RRR, +S1, +S2 - GI/Abdominal GI/Abdominal exam: Present: soft, tenderness (epigastric), no peritoneal signs. Absent: distended, firm, guarding - Rectal Rectal exam: Present: deferred - Extremities Exam Extremities exam: Present: warm - Neurological Exam Neurological exam: Present: no focal deficits - Psychiatric Psychiatric exam: Present: normal affect, normal mood - Skin Skin exam: Present: dry, intact, normal color, warm Results - Labs CBC & Chem 7: 12/27/18 09:03 12/27/18 09:03 Labs: Last Result 12/27/18 12/27/18 09:03 09:03 Calcium 8.6 Troponin I < 0.03 Vitamin B12 177 L Folate 9.7 Entire Visit 12/27/18 12/27/18 12/27/18 09:03 09:03 09:03 Hgb 9.3 L Hct 29.3 L PT Total Bilirubin 0.3 AST 12 L ALT 15 Lipase 14 Folate 9.7 12/27/18 09:42 Hgb Hct PT 12.6 H Total Bilirubin AST ALT Lipase Folate - ABG ABG results: PT/INR, D-dimer PT 12.6 Seconds (9.4-12.1) H 12/27/18 09:42 - Impressions Impressions Chest X-Ray 12/27/18 08:38 IMPRESSION: 1. No active pulmonary disease. D/ / Kyle Bradley MD / Kyle Bradley MD Interpreting Provider: Kyle Bradley MD Head CT 12/27/18 08:38 IMPRESSION: No acute intracranial abnormality. Sequela of chronic small vessel ischemic disease with a remote infarct involving the anterior limb internal capsule on the right. D/ / 12/27/2018 11:31:17 Morris Pedroza MD / [facility] Interpreting Provider: Morris Pedroza MD Abdomen/Pelvis CTA 12/27/18 09:10 IMPRESSION: 1. There is no evidence of active extravasation in the gastrointestinal tract to suggest arterial gastrointestinal bleeding. 2. A focal area of aortic dissection can be seen in the descending thoracic aorta without significant aneurysmal dilatation. 3. No evidence of abdominal aortic dissection or aneurysm. Mesenteric and renal circulation appear normal. 4. Fatty infiltration of the liver. 5. No evidence of acute gastrointestinal abnormality. 6. Incidental pulmonary nodule in the right middle lobe measuring 6.4 mm that needs follow-up. RECOMMENDATIONS: Fleischner Society guidelines for follow-up and management of incidentally detected pulmonary nodules: Single Solid Nodule: Nodule size less than 6 mm In a low-risk patient, no routine follow-up. In a high-risk patient, optional CT at 12 months. Nodule size equals 6-8 mm In a low-risk patient, CT at 6-12 months, then consider CT at 18-24 months. In a high-risk patient, CT at 6-12 months, then CT at 18-24 months. Nodule size greater than 8 mm In a low-risk patient, consider CT at 3 months, PET/CT, or tissue sampling. In a high-risk patient, consider CT at 3 months, PET/CT, or tissue sampling. Multiple Solid Nodules: Nodule size less than 6 mm In a low-risk patient, no routine follow-up. In a high-risk patient, optional CT at 12 months. Nodule size equals 6-8 mm In a low-risk patient, CT at 3-6 months, then consider CT at 18-24 months. In a high-risk patient, CT at 3-6 months, then CT at 18-24 months. Nodule size greater than 8 mm In a low-risk patient, CT at 3-6 months, then consider CT at 18-24 months. In a high-risk patient, CT at 3-6 months, then CT at 18-24 months. - Low risk patients include individuals with minimal or absent history of smoking and other known risk factors. - High risk patients include individuals with a history or smoking or known risk factors. Radiology 2017 http://pubs.rsna.org/doi/full/10.1148/radiol.1840519259 D/ / 12/27/2018 11:40:42 Mallory Turner MD / flip Interpreting Provider: Mallory Turner MD Chest CTA 12/27/18 09:10 IMPRESSION: 1. There is no evidence of active extravasation in the gastrointestinal tract to suggest arterial gastrointestinal bleeding. 2. A focal area of aortic dissection can be seen in the descending thoracic aorta without significant aneurysmal dilatation. 3. No evidence of abdominal aortic dissection or aneurysm. Mesenteric and renal circulation appear normal. 4. Fatty infiltration of the liver. 5. No evidence of acute gastrointestinal abnormality. 6. Incidental pulmonary nodule in the right middle lobe measuring 6.4 mm that needs follow-up. RECOMMENDATIONS: Fleischner Society guidelines for follow-up and management of incidentally detected pulmonary nodules: Single Solid Nodule: Nodule size less than 6 mm In a low-risk patient, no routine follow-up. In a high-risk patient, optional CT at 12 months. Nodule size equals 6-8 mm In a low-risk patient, CT at 6-12 months, then consider CT at 18-24 months. In a high-risk patient, CT at 6-12 months, then CT at 18-24 months. Nodule size greater than 8 mm In a low-risk patient, consider CT at 3 months, PET/CT, or tissue sampling. In a high-risk patient, consider CT at 3 months, PET/CT, or tissue sampling. Multiple Solid Nodules: Nodule size less than 6 mm In a low-risk patient, no routine follow-up. In a high-risk patient, optional CT at 12 months. Nodule size equals 6-8 mm In a low-risk patient, CT at 3-6 months, then consider CT at 18-24 months. In a high-risk patient, CT at 3-6 months, then CT at 18-24 months. Nodule size greater than 8 mm In a low-risk patient, CT at 3-6 months, then consider CT at 18-24 months. In a high-risk patient, CT at 3-6 months, then CT at 18-24 months. - Low risk patients include individuals with minimal or absent history of smoking and other known risk factors. - High risk patients include individuals with a history or smoking or known risk factors. Radiology 2017 http://pubs.rsna.org/doi/full/10.1148/radiol.0009593043 D/ / 12/27/2018 11:40:42 Mallory Turner MD / flip Interpreting Provider: Mallory Turner MD Consult Discharge Plan - Plan Referrals: NONE,PCP [Primary Care Provider] -
[2018-12-27] MEDS ORDERED: 0.9 % Sodium Chloride 250 ML ONE (12:53)
[2018-12-27] MEDS ORDERED: Lidocaine -MPF 2% 2 ML VIAL ONE (13:23)
[2018-12-27] MEDS ORDERED: *HR* Propofol 200 MG/20 ML VIAL IVP ONE (13:23)
[2018-12-27] MEDS: Pantoprazole 40 MG in 0.9 % Sodium Chloride Mini Bag 100 ML IVC SCH ×2 (13:25→19:42)
[2018-12-27] MEDS: Insulin LISPRO 300 UNITS/3 ML VIAL SQ SCH ×2 (13:26→17:35)
--- NOTE | 2018-12-27 13:52 | Anesthesia Evaluation PreOp ---
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: CVA (2017 w/residual L weakness & "constant GARCIA"), Syncope (syncopal episode prompted arrival to ED arrival), Other (BiPolar disorder, Anxiety/Depression, Insomnia, RLS) Other Medical History: Renal (Kidney stones), Diabetes Type II, GERD Anesthesia History: Past Anesthesia (Nikki, Hernia repair x 4, Hyster, Ureteral stent, B-CTR, Lap Tubal), Problems (PONV w/GA - responsive to Scopolamine patch) Alcohol Use: none Drug use: none Medications and Allergies Fluticasone/Salmeterol [Advair 500-50 Diskus] 1 puff IH BID 09/17/15 [History] Lisinopril [Zestril] 40 mg PO DAILY 09/17/15 [History] amLODIPine [Norvasc] 10 mg PO DAILY 09/17/15 [History] metFORMIN [Glucophage] 500 mg PO BID 09/17/15 [History] Clopidogrel [Plavix] 75 mg PO DAILY 10/17/17 [History] Escitalopram [Lexapro] 10 mg PO DAILY 10/17/17 [History] Gabapentin [Neurontin] 300 mg PO TID 10/17/17 [History] Metoprolol Succinate 200 mg PO DAILY 10/17/17 [History] Ranitidine HCl [Acid Professor Of Food Biochemistry] 75 mg PO BID 10/17/17 [History] Rosuvastatin Calcium [Crestor] 40 mg PO HS 10/17/17 [History] hydroCHLOROthiazide [Hydrochlorothiazide] 25 mg PO DAILY 10/17/17 [History] HYDROcodone/Acet 5/325 mg [[place] 5-325 mg] 1 tab PO Q6H PRN 3 Days #12 tab 11/08/17 [Rx] Allergy/AdvReac Type Severity Reaction Status Date / Time No Known Allergies Allergy Verified 11/08/17 06:45 - Meds/Allergy Pre-op Review Medications Reviewed: Yes Allergies Reviewed: Yes Beta Blockers on Current Med List: Yes (Metoprolol) If Beta Blockers taken, Date/Time (Last Dose taken): 12/26/2018 @ 12 Noon Anesthesia Results - Labs 12/27/18 09:03 12/27/18 09:03 Impressions Chest X-Ray 12/27/18 08:38 IMPRESSION: 1. No active pulmonary disease. D/ / Kyle Bradley MD / Kyle Bradley MD Interpreting Provider: Kyle Bradley MD Head CT 12/27/18 08:38 IMPRESSION: No acute intracranial abnormality. Sequela of chronic small vessel ischemic disease with a remote infarct involving the anterior limb internal capsule on the right. D/ / 12/27/2018 11:31:17 Morris Pedroza MD / earshanice Interpreting Provider: Morris Pedroza MD Chest CTA 12/27/18 09:10 IMPRESSION: 1. There is no evidence of active extravasation in the gastrointestinal tract to suggest arterial gastrointestinal bleeding. 2. A focal area of aortic dissection can be seen in the descending thoracic aorta without significant aneurysmal dilatation. 3. No evidence of abdominal aortic dissection or aneurysm. Mesenteric and renal circulation appear normal. 4. Fatty infiltration of the liver. 5. No evidence of acute gastrointestinal abnormality. 6. Incidental pulmonary nodule in the right middle lobe measuring 6.4 mm that needs follow-up. Interpreting Provider: Mallory Turner MD Laboratory Results - Imaging EKG: report reviewed (87bpm - SINUS RHYTHM LOW QRS VOLTAGE IN PRECORDIAL LEADS NONSPECIFIC T-WAVE ABNORMALITY Electronically Signed On 11-04-2017 19:07:00 EDT by Aggie Morrow) Anesthesia Exam Vital Signs Temp Pulse Resp BP Pulse Ox 12/27/18 13:17 97.9 F 80 18 146/81 97 12/27/18 13:02 97.7 F 80 18 149/80 96 12/27/18 11:55 97.7 F 77 18 160/93 98 12/27/18 11:00 83 18 99 12/27/18 10:15 74 18 145/130 98 12/27/18 09:45 74 18 186/96 98 12/27/18 09:00 77 18 129/56 97 12/27/18 08:37 97.7 F 83 18 149/58 97 Intake and Output 12/26/18 12/27/18 12/27/18 23:59 07:59 15:59 Intake Total 1000 / 1000 Balance 1000 / 1000 Intake: IV Fluids 1000 / 1000 0.9 % Sodium Chloride 1,000 ML 1000 / 1000 @ 999 mls/hr IVC .Q1H1M ONE Rx# :[id number] Blood Product 0 / 0 Rbcs Leuko Poor As-1 Unit 0 / 0 [id number] Other: Meal NPO Percent of Meal Consumed 0% Weight 107.955 kg Blood Glucose* 253 Patient Weight 12/27/18 23:59 Weight 107.955 kg - HEENT Pupil (Motor): Pupils equal, EOMI Mallampati: II Teeth: Edentulous Oral Opening: Greater than 3 - FIELD MARKETING DIRECTOR LOC: Oriented FIELD MARKETING DIRECTOR Motor: Normal RUE, Normal LUE, Normal RLE, Normal LLE, Normal Face FIELD MARKETING DIRECTOR Sensory: Normal: RUE, LUE, RLE, LLE, Face - Cardiac Rhythm: Regular Murmur: None - Pulmonary Breath Sounds: bilateral Clear Respiratory Effort: Symmetrical Anesthesia Assess/Plan ASA Score: 3 (MO/BMI = 42) Level of consciousness: Cooperative, Oriented, Tranquil Anesthetic Plan: MAC Autologous Blood: Yes Monitoring Plan: Standard Monitors Recovery Plan: PACU Anes Supervising Prov Stmt: Pt seen/evaluated, R&B Discussed questions answered and consent obtained. Leila Clemons MD
[2018-12-27 14:09] LABS: Estimated Average Glucose 177 mg/dl
[2018-12-27 14:27] LABS: % Iron Saturation 27 % (15-50); Iron 85 mcg/dL (50-170); Transferrin 222 mg/dL (203-362)
[2018-12-27 14:38] LABS: Ferritin 44 ng/mL (10-120)
[2018-12-27 18:31] LABS: Hematocrit 35.1 % (35.3-44.9)
[2018-12-27 18:36] LABS: Hemoglobin 11.4 g/dL (11.5-15.4)
--- NOTE | 2018-12-27 19:22 | Vascular/Endovasc Consult Note ---
Date of Encounter: 12/27/18 Time of Encounter: 19:10 Assessment and Plan (1) Descending thoracic aortic dissection Status: Chronic The pathophysiology and natural history of aortic dissection and aortic aneurysms was discussed the patient and all questions were answered. Review of the patient CT reveals a focal area of dissection versus small aneurysm in the descending thoracic aorta. There is no evidence of rupture with significant dissection. This appears chronic in nature. Given the relatively small size, was an indication for intervention or further evaluation. The patient was advised immediate medical attention for any signs or symptoms of acute onset abdominal, flank, back or chest pain. She will follow up in [address] scan in vascular clinic. (2) Morbid obesity with BMI of 45.0-49.9, adult Status: Chronic (3) Tobacco abuse Status: Chronic She was counseled regarding smoking cessation. (4) Essential hypertension Status: Chronic (5) Diabetes mellitus, type 2 Status: Chronic She was counseled regarding atherosclerotic risk factor reduction. Qualifiers: Diabetes mellitus long-term insulin use: without terminal gauger use Diabetes mellitus complication status: with hyperglycemia Qualified Code(s): E11.65 - Type 2 diabetes mellitus with hyperglycemia (6) GI bleed Status: Acute Qualifiers: GI bleed type/associated pathology: melena Qualified Code(s): K92.1 - Melena - History of Present Illness Consult date: 12/27/18 Requesting physician: Cristina Trevino Consult reason: Thoracic aortic dissection Chief complaint: Gastric intestinal bleeding History of present illness: Ms. Gale is a 63 year old female presented to the emergency room with a history of syncope. She was noted to have evidence of gastritis of bleeding with anemia. The patient is a history of hypertension and hyperlipidemia. As part of her evaluation she underwent a CT scan of the chest which revealed a focal aortic dissection. Vascular surgery was counseled for further evaluation. The time of evaluation the patient denies any chest pain or shortness of breath. She was unaware of any dissection in the past or aneurysmal degeneration. She denies a family history of dissection or aneurysm. She currently denies any abdominal, flank or back pain. Past Med Surg Social Fam HX - Past Medical History Medical history: COPD, diabetes, hyperlipidemia, hypertension, kidney stones, osteoporosis Additional medical history: osteoporosis Psychiatric history: no psych history - Past Surgical History Surgical History: cholecystectomy, herniorrhaphy, hysterectomy, ureteral stent, other Additional surgical history: PARTIAL HYSTER, LAPAROSCOPY, MARYBETH OPEN CARPAL & GUYON TUNNEL - Social History Smoking Status: Former smoker Smokeless Tobacco Status: No Alcohol use: none Drug use: none - Family History Mother Living Status: Father Living Status: Medications and Allergies Lisinopril [Zestril] 40 mg PO DAILY 09/17/15 [History] amLODIPine [Norvasc] 10 mg PO DAILY 09/17/15 [History] metFORMIN [Glucophage] 500 mg PO BID 09/17/15 [History] Clopidogrel [Plavix] 75 mg PO DAILY 10/17/17 [History] Escitalopram [Lexapro] 10 mg PO DAILY 10/17/17 [History] Metoprolol Succinate 200 mg PO DAILY 10/17/17 [History] Ranitidine HCl [Acid Civil Rights Attorney] 75 mg PO BID 10/17/17 [History] hydroCHLOROthiazide [Hydrochlorothiazide] 25 mg PO DAILY 10/17/17 [History] Ibuprofen [Ibu-200] 200 mg PO QID PRN 12/27/18 [History] Omeprazole [PriLOSEC] 40 mg PO DAILY 30 Days #30 cap 12/29/18 [Rx] cephALEXin [Keflex] 500 mg PO TID #21 capsule 12/29/18 [Rx] Allergy/AdvReac Type Severity Reaction Status Date / Time No Known Allergies Allergy Verified 11/08/17 06:45 All Systems Review: The remainder of the systems were reviewed and are negative - Constitutional Constitutional: fatigue, no chills, no fever(s) - Cardiovascular Cardiovascular: no chest pain at rest, no dyspnea at rest - Gastrointestinal Gastrointestinal: melena, no abdominal pain Exam Vital Signs, Last 4 Hours Temp Pulse Resp BP Pulse Ox 12/27/18 16:52 97.9 F 85 18 162/90 98 12/27/18 16:36 98.0 F 81 16 162/90 98 12/27/18 16:00 79 16 163/97 99 12/27/18 15:45 77 16 162/82 97 12/27/18 15:30 75 16 162/82 98 General: Present: Conversant, No Apparent Distress HEENT: Present: Atraumatic, Pupils equal Neck: Absent: JVD, Lymphadenopathy, Left Carotid bruit, Right Carotid bruit Cardiac: Present: Reg Rate and Rhythm, Normal S1 and S2 Lungs: Present: Normal Breath Sounds, No Wheeze, Rales, Rhonchi Neuro: Present: Alert and responsive, No focal deficits noted, Cranial nerves grossly intact Abdomen: Present: Soft, Non-tender. Absent: Masses Vascular: Present: Pulse, normal. Absent: Normal capillary refill, Cyanosis, Edema Skin: Present: No rashes noted on visualized skin, Wound/ulcer(s) Consult Discharge Plan - Plan Instructions: Gastrointestinal Bleeding (DC), Diabetes Mellitus Type 2 in Adults (DC), Peripheral Vascular Disorders (DC), Chronic Hypertension (DC) Referrals: Placido Johnson MD [Partnered Physician] - (web request sent on 12-28-18 @ 1037) Sean Constantino CNP [Non-Partnered Physician] - 01/10/19 2:45 pm Prescriptions: cephALEXin [Keflex] 500 mg PO TID #21 capsule Transmission Status: Received by Tomasz Crowe Omeprazole [PriLOSEC] 40 mg PO DAILY 30 Days #30 cap Transmission Status: Received by Tomasz Crowe
[2018-12-28] MEDS: Pantoprazole 40 MG in 0.9 % Sodium Chloride Mini Bag 100 ML IVC SCH ×3 (00:03→10:31)
[2018-12-28] MEDS: Insulin LISPRO 300 UNITS/3 ML VIAL SQ SCH ×4 (00:08→16:09)
[2018-12-28 05:58] LABS: Hematocrit 30.9 % (35.3-44.9); Mean Corpuscular HGB Conc 32.4 g/dL (31.6-35.5); Mean Corpuscular Hemoglobin 29.3 pg (28.0-33.3); Mean Corpuscular Volume 90.6 fL (83.0-100.0); Mean Platelet Volume 9.6 fL (9.4-12.4); Platelet Count 208 K/mcL (140-400); Red Blood Count 3.41 M/mcL (3.82-4.97); Red Cell Distribution Width 13.7 % (11.5-14.5)
[2018-12-28 06:13] LABS: BUN/Creatinine Ratio 34 (6-26); Blood Urea Nitrogen 24 mg/dL (8-23); Calcium 8.9 mg/dL (8.6-10.3); Carbon Dioxide 24 mEq/L (23-29); Chloride 105 mEq/L (98-107); Glucose 215 mg/dL (70-105); Magnesium 1.9 mg/dL (1.6-2.6); Osmolality,Calculated 299 (280-300); Potassium 3.6 mEq/L (3.5-5.1); Sodium 139 mEq/L (136-145); eGFR For African Americans > 60 (> 60); eGFR For Non-African Americans > 60 (> 60)
--- NOTE | 2018-12-28 08:44 | Internal Med Progress Note ---
<Aurelio Ortiz I - Last Filed: 12/28/18 16:14> Hospitalist Progress Note - Encounter Date of Encounter: 12/28/18 Time of Encounter: 08:30 - Subjective Interval History: Today patient is seen and examined . She is doing better , denies hematemesis or melena .No chest pain or back pain . no SOB . No fever chills or sweating . Plan for endoscopy and colonoscopy today - Exam Vitals: Temp Pulse Resp BP Pulse Ox 97.8 F 76 18 154/91 99 12/28/18 07:26 12/28/18 07:26 12/28/18 07:12/28/18 07:12/28/18 03:47 Exam: General: no acute distress , A&AX3 HEENT: Atraumatic, Normocephaly, sclera unicteric Neck: supple , Full ROM , trachea midline Cardiac: RRR , S1+. S2+, Lungs: Normal Breath Sounds Bilaterally, No Wheeze, Rales, Rhonchi Abdomen: Soft, Non-Tender ,no organomegaly , +bowel sounds Extremities: No Clubbing, No Cyanosis,or edema , Normal Pulses Skin : intact , Normal color Psychiatric : normal affect, normal mood Nuero : alert, normal gait, oriented X3 - Assessment and Plan (1) GI bleed Current Visit: Yes Status: Acute Assessment and Plan: Pt presented to ED with complaints of syncope related to acute UGI bleed with melena and hematemesis. Today she is doing better , clinically stable .No more episodes of hematemesis or melena Hb today 10 , iron profile , ferritin folate : WNL , B12 177 Endoscopy : esophagitis , Gastritis . No acute bleeding Colonoscopy : Normal Colon , Non bleeding internal hemorrhoid Plan : -stop PPI drips and change to IV protonix 40 mg daily -advance diet as tolerated - monitor H&H - B12 replacement -Video capsule endoscopy as outpatient to visualize small bowel (2) Descending thoracic aortic dissection Current Visit: Yes Status: Chronic Assessment and Plan: CTA : Descending thoracic aortic dissection no chest pain or back pain vascular surgery consulted : recommend no intervention at this point , monitor vitals (3) Essential hypertension Current Visit: No Status: Chronic Assessment and Plan: continue home med PRN hydralazine 10 mg if SBP >160 (4) Diabetes mellitus, type 2 Current Visit: No Status: Chronic Assessment and Plan: blood sugar today 155 corrective low SSi diabetic diet - Time Spent with Patient Total time spent is greater than 50% in coordination of care (as documented) at patient's floor/unit and/or counseling patient: Internal Medicine: Result - Labs CBC & Chem 7: 12/28/18 05:39 12/28/18 05:39 Labs: Short CBC 12/27/18 12/27/18 12/28/18 Range/Units 09:03 18:03 05:39 WBC 9.3 8.0 (4.3-11.1) K/mcL Hgb 9.3 L 11.4 L D 10.0 L (11.5-15.4) g/dL Hct 29.3 L 35.1 L 30.9 L (35.3-44.9) % Plt Count 223 208 (140-400) K/mcL Neutrophils # 5.4 (1.6-8.9) K/mcL BMP 12/27/18 12/28/18 09:03 05:39 Sodium 140 139 Potassium 3.9 3.6 Chloride 105 105 Carbon Dioxide 26 24 BUN 36 H 24 H Creatinine 0.71 0.70 Glucose 311 H 215 H Calcium 8.6 8.9 Cardiac Enzymes 12/27/18 12/27/18 12/27/18 Range/Units 09:03 12:48 18:03 Troponin I < 0.03 < 0.03 < 0.03 (< 0.04) ng/mL 12/27/18 Range/Units 23:57 Troponin I < 0.03 (< 0.04) ng/mL Liver Function 12/27/18 Range/Units 09:03 Total Bilirubin 0.3 (0.3-1.0) mg/dL AST 12 L (13-39) Units/L ALT 15 (7-52) Units/L Alkaline Phosphatase 54 (34-104) Units/L Albumin 3.3 L (3.5-5.7) g/dL - ABG Interpretation ABG results: PT/INR, D-dimer PT 12.6 Seconds (9.4-12.1) H 12/27/18 09:42 - Impressions Impressions Chest X-Ray 12/27/18 08:38 IMPRESSION: 1. No active pulmonary disease. D/ / Kyle Bradley MD / Kyle Bradley MD Interpreting Provider: Kyle Bradely MD Head CT 12/27/18 08:38 IMPRESSION: No acute intracranial abnormality. Sequela of chronic small vessel ischemic disease with a remote infarct involving the anterior limb internal capsule on the right. D/ / 12/27/2018 11:31:17 Morris Pedroza MD / [email or web address] Interpreting Provider: Morris Pedroza MD Abdomen/Pelvis CTA 12/27/18 09:10 IMPRESSION: 1. There is no evidence of active extravasation in the gastrointestinal tract to suggest arterial gastrointestinal bleeding. 2. A focal area of aortic dissection can be seen in the descending thoracic aorta without significant aneurysmal dilatation. 3. No evidence of abdominal aortic dissection or aneurysm. Mesenteric and renal circulation appear normal. 4. Fatty infiltration of the liver. 5. No evidence of acute gastrointestinal abnormality. 6. Incidental pulmonary nodule in the right middle lobe measuring 6.4 mm that needs follow-up. RECOMMENDATIONS: Fleischner Society guidelines for follow-up and management of incidentally detected pulmonary nodules: Single Solid Nodule: Nodule size less than 6 mm In a low-risk patient, no routine follow-up. In a high-risk patient, optional CT at 12 months. Nodule size equals 6-8 mm In a low-risk patient, CT at 6-12 months, then consider CT at 18-24 months. In a high-risk patient, CT at 6-12 months, then CT at 18-24 months. Nodule size greater than 8 mm In a low-risk patient, consider CT at 3 months, PET/CT, or tissue sampling. In a high-risk patient, consider CT at 3 months, PET/CT, or tissue sampling. Multiple Solid Nodules: Nodule size less than 6 mm In a low-risk patient, no routine follow-up. In a high-risk patient, optional CT at 12 months. Nodule size equals 6-8 mm In a low-risk patient, CT at 3-6 months, then consider CT at 18-24 months. In a high-risk patient, CT at 3-6 months, then CT at 18-24 months. Nodule size greater than 8 mm In a low-risk patient, CT at 3-6 months, then consider CT at 18-24 months. In a high-risk patient, CT at 3-6 months, then CT at 18-24 months. - Low risk patients include individuals with minimal or absent history of smoking and other known risk factors. - High risk patients include individuals with a history or smoking or known risk factors. Radiology 2017 http://pubs.rsna.org/doi/full/10.1148/radiol.2615619253 D/ / 12/27/2018 11:40:42 Mallory Turner MD / flip Interpreting Provider: Mallory Turner MD Chest CTA 12/27/18 09:10 IMPRESSION: 1. There is no evidence of active extravasation in the gastrointestinal tract to suggest arterial gastrointestinal bleeding. 2. A focal area of aortic dissection can be seen in the descending thoracic aorta without significant aneurysmal dilatation. 3. No evidence of abdominal aortic dissection or aneurysm. Mesenteric and renal circulation appear normal. 4. Fatty infiltration of the liver. 5. No evidence of acute gastrointestinal abnormality. 6. Incidental pulmonary nodule in the right middle lobe measuring 6.4 mm that needs follow-up. RECOMMENDATIONS: Fleischner Society guidelines for follow-up and management of incidentally detected pulmonary nodules: Single Solid Nodule: Nodule size less than 6 mm In a low-risk patient, no routine follow-up. In a high-risk patient, optional CT at 12 months. Nodule size equals 6-8 mm In a low-risk patient, CT at 6-12 months, then consider CT at 18-24 months. In a high-risk patient, CT at 6-12 months, then CT at 18-24 months. Nodule size greater than 8 mm In a low-risk patient, consider CT at 3 months, PET/CT, or tissue sampling. In a high-risk patient, consider CT at 3 months, PET/CT, or tissue sampling. Multiple Solid Nodules: Nodule size less than 6 mm In a low-risk patient, no routine follow-up. In a high-risk patient, optional CT at 12 months. Nodule size equals 6-8 mm In a low-risk patient, CT at 3-6 months, then consider CT at 18-24 months. In a high-risk patient, CT at 3-6 months, then CT at 18-24 months. Nodule size greater than 8 mm In a low-risk patient, CT at 3-6 months, then consider CT at 18-24 months. In a high-risk patient, CT at 3-6 months, then CT at 18-24 months. - Low risk patients include individuals with minimal or absent history of smoking and other known risk factors. - High risk patients include individuals with a history or smoking or known risk factors. Radiology 2017 http://pubs.rsna.org/doi/full/10.1148/radiol.6180013947 D/ / 12/27/2018 11:40:42 Mallory Turner MD / flip Interpreting Provider: Mallory Turner MD Consult Discharge Plan - Plan Referrals: Placido Johnson MD [Partnered Physician] - (web request sent on 12-28-18 @ 1037) Sean Constantino CNP [Non-Partnered Physician] - 01/10/19 2:45 pm <Mor Zelaya - Last Filed: 12/28/18 18:17> Hospitalist Progress Note - Encounter Date of Encounter: 12/28/18 - Exam Vitals: Temp Pulse Resp BP Pulse Ox 97.6 F 75 18 118/82 96 12/28/18 16:00 12/28/18 16:00 12/28/18 16:00 12/28/18 16:00 12/28/18 16:00 - Assessment and Plan (1) Essential hypertension Current Visit: No Status: Chronic (2) Diabetes mellitus, type 2 Current Visit: No Status: Chronic (3) Descending thoracic aortic dissection Current Visit: Yes Status: Chronic (4) Gastrointestinal hemorrhage with melena Current Visit: Yes Status: Acute (5) Syncope Current Visit: Yes Status: Suspected (6) Morbid obesity with BMI of 40.0-44.9, adult Current Visit: Yes Status: Chronic - Time Spent with Patient Total time spent is greater than 50% in coordination of care (as documented) at patient's floor/unit and/or counseling patient: Internal Medicine: Result - Labs CBC & Chem 7: 12/28/18 05:39 12/28/18 05:39 Labs: Short CBC 12/27/18 12/28/18 Range/Units 18:03 05:39 WBC 8.0 (4.3-11.1) K/mcL Hgb 11.4 L D 10.0 L (11.5-15.4) g/dL Hct 35.1 L 30.9 L (35.3-44.9) % Plt Count 208 (140-400) K/mcL BMP 12/28/18 05:39 Sodium 139 Potassium 3.6 Chloride 105 Carbon Dioxide 24 BUN 24 H Creatinine 0.70 Glucose 215 H Calcium 8.9 Cardiac Enzymes 12/27/18 12/27/18 Range/Units 18:03 23:57 Troponin I < 0.03 < 0.03 (< 0.04) ng/mL - ABG Interpretation ABG results: PT/INR, D-dimer PT 12.6 Seconds (9.4-12.1) H 12/27/18 09:42 - Attending Attestation I saw evaluated and examined this patient and reviewed objective data including labs and my medical decision-making was reviewed with the Resident Physician/Medical Student. I agree with the documented findings, disposition and treatment plan as described except to any changes set forth below. We independently had [id number] contact with the patient. <Aurelio Ortiz I - Last Filed: 12/28/18 16:14> (1) GI bleed Qualifiers: GI bleed type/associated pathology: melena Qualified Code(s): K92.1 - Melena (4) Diabetes mellitus, type 2 Qualifiers: Diabetes mellitus residential insulin use: without residential use Diabetes mellitus complication status: with hyperglycemia Qualified Code(s): E11.65 - Type 2 diabetes mellitus with hyperglycemia <Mor Zelaya - Last Filed: 12/28/18 18:17> (2) Diabetes mellitus, type 2 Qualifiers: Diabetes mellitus residential insulin use: without residential use Diabetes mellitus complication status: with hyperglycemia Qualified Code(s): E11.65 - Type 2 diabetes mellitus with hyperglycemia (5) Syncope Qualifiers: Syncope type: vasovagal syncope Qualified Code(s): R55 - Syncope and collapse
[2018-12-28] MEDS: amLODIPine 5 MG TABLET PO SCH (08:53)
[2018-12-28] MEDS: Lisinopril 20 MG TABLET PO SCH (08:53)
[2018-12-28] MEDS: Pantoprazole 40 MG VIAL IVP SCH (11:53)
[2018-12-28] MEDS ORDERED: *HR* Propofol 200 MG/20 ML VIAL IVP ONE (12:03)
[2018-12-28] MEDS ORDERED: Lidocaine -MPF 2% 2 ML VIAL ONE (12:03)
[2018-12-28] MEDS: Metoprolol XL (24 HR) Succ 50 MG TAB.ER.24H PO SCH (16:08)
[2018-12-28] MEDS ORDERED: Insulin LISPRO 300 UNITS/3 ML VIAL SQ SCH (21:00)
[2018-12-29 03:24] LABS: Bilirubin,Urine Negative (Negative); Blood,Urine Trace (Negative); Clarity,Urine Cloudy (Clear); Color,Urine Yellow (Yellow); Glucose,Urine (UA) Normal (Normal); Ketones,Urine Negative (Negative); Leukocyte Esterase,Urine Large (Negative); Nitrite,Urine Positive (Negative); Protein,Urine Negative (Neg-Trace); Specific Gravity,Urine 1.016 (1.010-1.025); Urobilinogen,Urine Normal (Normal)
[2018-12-29 03:26] LABS: Bacteria,Urine Many per hpf (None-Few); Hyaline Casts,Urine None Seen per lpf (None-Few); RBC,Urine 0-3 per hpf (0-3); Squamous Epithelial Cell,Urine Many per lpf (None-Few); WBC,Urine TNTC per hpf (0-3)
[2018-12-29 04:51] LABS: Basophils % 0.4 %; Eosinophils # 0.2 K/mcL (0.0-0.6); Eosinophils % 2.6 %; Hematocrit 29.8 % (35.3-44.9); Hemoglobin 9.5 g/dL (11.5-15.4); Immature Granulocytes % 0.4 % (0-4); Lymphocytes # 1.9 K/mcL (0.6-4.6); Lymphocytes % 27.4 %; Mean Corpuscular HGB Conc 31.9 g/dL (31.6-35.5); Mean Corpuscular Hemoglobin 29.3 pg (28.0-33.3); Mean Platelet Volume 9.4 fL (9.4-12.4); Monocytes # 0.4 K/mcL (0.0-1.3); Monocytes % 6.1 %; Neutrophils # 4.4 K/mcL (1.6-8.9); Platelet Count 200 K/mcL (140-400); Red Blood Count 3.24 M/mcL (3.82-4.97); Red Cell Distribution Width 13.8 % (11.5-14.5); Segmented Neutrophils % 63.1 %
[2018-12-29 05:20] LABS: Alanine Aminotransferase 16 Units/L (7-52); Albumin 3.6 g/dL (3.5-5.7); Albumin/Globulin Ratio 1.4 (1.1-2.2); Alkaline Phosphatase 60 Units/L (34-104); Aspartate Amino Transferase 14 Units/L (13-39); BUN/Creatinine Ratio 26 (6-26); Bilirubin,Total 0.4 mg/dL (0.3-1.0); Blood Urea Nitrogen 18 mg/dL (8-23); Calcium 8.7 mg/dL (8.6-10.3); Carbon Dioxide 25 mEq/L (23-29); Chloride 106 mEq/L (98-107); Globulin 2.5 g/dL (2.4-3.5); Glucose 146 mg/dL (70-105); Osmolality,Calculated 293 (280-300); Potassium 3.8 mEq/L (3.5-5.1); Sodium 139 mEq/L (136-145); Total Protein 6.1 g/dL (6.4-8.9); eGFR For African Americans > 60 (> 60); eGFR For Non-African Americans > 60 (> 60)
[2018-12-29] MEDS: amLODIPine 5 MG TABLET PO SCH (08:08)
[2018-12-29] MEDS: Metoprolol XL (24 HR) Succ 50 MG TAB.ER.24H PO SCH (08:09)
[2018-12-29] MEDS: Lisinopril 20 MG TABLET PO SCH (08:09)
[2018-12-29] MEDS: Insulin LISPRO 300 UNITS/3 ML VIAL SQ SCH ×2 (08:10→12:07)
--- NOTE | 2018-12-29 08:56 | Internal Med Progress Note ---
Hospitalist Progress Note - Encounter Date of Encounter: 12/29/18 - Exam Vitals: Temp Pulse Resp BP Pulse Ox 98.1 F 69 16 137/77 96 12/29/18 07:38 12/29/18 07:38 12/29/18 07:38 12/29/18 07:38 12/29/18 08:04 - Time Spent with Patient Total time spent is greater than 50% in coordination of care (as documented) at patient's floor/unit and/or counseling patient: Internal Medicine: Result - Labs CBC & Chem 7: 12/29/18 04:21 12/29/18 04:21 Labs: Short CBC 12/29/18 Range/Units 04:21 WBC 7.0 (4.3-11.1) K/mcL Hgb 9.5 L (11.5-15.4) g/dL Hct 29.8 L (35.3-44.9) % Plt Count 200 (140-400) K/mcL Neutrophils # 4.4 (1.6-8.9) K/mcL BMP 12/29/18 04:21 Sodium 139 Potassium 3.8 Chloride 106 Carbon Dioxide 25 BUN 18 Creatinine 0.70 Glucose 146 H Calcium 8.7 Liver Function 12/29/18 Range/Units 04:21 Total Bilirubin 0.4 (0.3-1.0) mg/dL AST 14 (13-39) Units/L ALT 16 (7-52) Units/L Alkaline Phosphatase 60 (34-104) Units/L Albumin 3.6 (3.5-5.7) g/dL Urine 12/29/18 Range/Units 03:18 Urine Color Yellow (Yellow) Urine Clarity Cloudy A (Clear) Urine pH 6.0 (5.0-8.0) pH Units Ur Specific [place] 1.016 (1.010-1.025) Urine Protein Negative (Neg-Trace) mg/dL Urine Glucose (UA) Normal (Normal) mg/dL - ABG Interpretation ABG results: PT/INR, D-dimer PT 12.6 Seconds (9.4-12.1) H 12/27/18 09:42 Consult Discharge Plan - Plan Referrals: Placido Johnson MD [Partnered Physician] - (web request sent on 12-28-18 @ [facility]) Sean Constantino CNP [Non-Partnered Physician] - 01/10/19 2:45 pm
[2018-12-29] MEDS ORDERED: Cyanocobalamin (B-12) 1,000 MCG TABLET PO SCH (09:00)
--- NOTE | 2018-12-29 10:36 | ENT - Consult Note ---
Date of Encounter: 12/29/18 Time of Encounter: 10:36 Assessment and Plan (1) GI bleed Current Visit: Yes Status: Acute The patient has no evidence of posterior epistaxis that would be causing her hematemesis. The patient has no evidence of an active or prior bleed from her nose both either history or physical exam. Recommend discuss with GI for [facility] er evaluation of upper GI bleed as an etiology of her hematemesis. Please call me if you have any questions.. discussed with hospitalist at bedside and patient. questions answered. History of Present Illness Consult date: 12/29/18 Reason for ENT Consult: other (hemetemesis) Requesting physician: Mor Zelaya History of present illness: The patient is a 63-year-old female who stated that for the past week she has had sharp abdominal pains. Then on 2018 she was sitting on the toilet and passed out and fell to the ground when she woke up she noticed she was surround ed by a pool of dark clotted blood. She states then she started vomiting copious amounts of blood and the blood was also coming out of her nose and also she had melena. The patient is on Plavix. The patient states that she did have some mild anterior nose bleed several years ago because has had no no epistaxis since that time. She has had no epistaxis recently. The patient states that when she was vomiting the blood she did not feel like it was pooling down the back of her throat but rather she had to vomit it up. she states that her prior nosebleeds several years ago were out the front of her nose and stopped within several minutes. She had an NG tube placed in the emergency room and a significant amount of blood was suctioned from her stomach. Since the patient has been in the hospital, she has had no episodes of epistaxis and has not had any spitting up of blood. She did have an EGD which reportedly so showed esophagitis and gastritis. I have been consulted to evaluate for posterior epistaxis. Past Med Surg Social Fam HX - Past Medical History Medical history: COPD, diabetes, hyperlipidemia, hypertension, kidney stones, osteoporosis Additional medical history: osteoporosis Psychiatric history: no psych history - Past Surgical History Surgical History: cholecystectomy, herniorrhaphy, hysterectomy, ureteral stent, other Additional surgical history: PARTIAL HYSTER, LAPAROSCOPY, MARYBETH OPEN CARPAL & GUYON TUNNEL - Social History Smoking Status: Former smoker Smokeless Tobacco Status: No Alcohol use: none Drug use: none Medications and Allergies Lisinopril [Zestril] 40 mg PO DAILY 09/17/15 [History] amLODIPine [Norvasc] 10 mg PO DAILY 09/17/15 [History] metFORMIN [Glucophage] 500 mg PO BID 09/17/15 [History] Clopidogrel [Plavix] 75 mg PO DAILY 10/17/17 [History] Escitalopram [Lexapro] 10 mg PO DAILY 10/17/17 [History] Metoprolol Succinate 200 mg PO DAILY 10/17/17 [History] Ranitidine HCl [Acid Child Welfare Worker] 75 mg PO BID 10/17/17 [History] hydroCHLOROthiazide [Hydrochlorothiazide] 25 mg PO DAILY 10/17/17 [History] Ibuprofen [Ibu-200] 200 mg PO QID PRN 12/27/18 [History] Allergy/AdvReac Type Severity Reaction Status Date / Time No Known Allergies Allergy Verified 11/08/17 06:45 ENT - ROS - Constitutional Constitutional ROS: as per HPI - EENT Nose, mouth and throat: as per HPI - Cardiovascular Cardiovascular ROS IM: as per HPI - Respiratory as per HPI - Gastrointestinal Gastrointestinal: coffee ground emesis, heartburn, vomiting - Genitourinary Genitourinary ROS: as per HPI - Musculoskeletal Musculoskeletal ROS: no abnormal gait, no muscle weakness, no myalgias, no neck pain, no numbness, no stiffness, no tingling - Integumentary Integumentary: no acne, no bleeding lesions, no change in hair, no change in nails, no change in pigmentation, no changing lesions, no erythema, no furuncle, no lesions, no new lesions, no non-healing lesions, no pruritus, no rash, no skin ulcer, no sores - Neurological Neurological ROS: no abnormal gait, no abnormal hearing, no abnormal speech, no disequilibrium, no dizziness, no focal weakness, no frequent falls, no headache(s), no lack of coordination, no numbness, no paresthesias, no restless legs, no syncope, no tingling, no tremor(s), no vertigo, no weakness - Psychiatric Psychiatric general: no abnormal sleep pattern, no anxiety, no auditory hallucinations - Endocrine Endocrine: no cold intolerance, no deeping of the voice, no excessive sweating, no fatigue, no flushing, no heat intolerance, no palpitations, no polydipsia, no polyphagia, no polyuria - Hematologic/Lymphatic no easy bleeding, no easy bruising, no lymphadenopathy - Allergic/Immunologic no tongue swelling, no throat swelling, no itchy eyes, no seasonal rhinorrhea, no uticaria, no wheezing, no GI upset with certain foods, no lip swelling ENT Exam Initial Vital Signs Temp Pulse Resp BP Pulse Ox 97.7 F 83 18 149/58 97 12/27/18 08:37 12/27/18 08:37 12/27/18 08:37 12/27/18 08:37 12/27/18 08:37 - ENT Other (She is a well-developed well-nourished female in no apparent distress l priti in bed. She is able to communicate without difficulty. She has no evidence of dried blood in her nose or throat. Ears: Bilateral normal pinnas, bilateral normal external auditory canals, bilateral tympanic membranes are intact. The middle ear spaces are clear. Nares: Normal dorsum, ala and vestibule. There is no dried blood in the vestibule. The septum is significantly deviated to the right and narrows the nasal cavity by about 95%. The anterior septum shows no prominent nasal vessels and there is no active bleeding on either side of the anterior nasal septum. There are no mucosal lesions. The inferior turbinate cannot be visualized on the right because of the patient's deviated nasal septum but the left inferior turbinate is normal with normal mucosa. Oropharynx oral cavity: Normal lips and gums. The patient is edentulous. The hard and soft palate are normal. The tonsils are 0+ bilaterally with no erythema or exudate. The tongue is normal with no masses or lesions. The floor mouth is soft. The posterior pharynx is normal in appearance with no evidence of active bleeding or dried blood or mucus in the posterior pharynx. The mucosa is normal. Neck: No masses, supple, trachea is midline, no lymphadenopathy. Thyroid: Thyroid is not enlarged. There are no pa lpable masses.) - Additional Findings Indications for nasal endoscopy: The patient has hematemesis and I have been asked to evaluate for posterior epistaxis. Nasal endoscopy is required to evaluate the posterior nasal cavity. Procedure in detail: After verbal informed consent was obtained from the patient, the flexible laryngoscope was placed in the patient's right nares atraumatically. The patient had a severe septal deviation to the right. The mucosa was normal. The anterior septum did not have any abnormal vessels. there was no active bleeding or blood clots in the nasal cavity. There was no purulence, mucous or polyps seen. The posterior nasal cavity was dry with normal mucosa. the scope was then removed and placed in the left nasal cavity atraumatically. The mucosa was normal. The anterior septum did not have any abnormal vessels. there was no active bleeding or blood clots in the nasal cavity. there was some small scabs along the middle turbinate from the prior NGT but no active bleeding. There was no purulence, mucous or polyps seen. The posterior nasal cavity was dry with normal mucosa. Scope was advanced into the nasopharynx where there was normal mucosa, no evidence of bleeding or dried blood, the adenoids were minimal. Eustachian tube orifices were patent bilaterally. The mucosa was normal. The scope was advanced into the hypopharynx where the base of tongue, vallecula, epiglottis, pyriform sinuses were normal. the vocal cords were normal bilaterally with normal mobility. the post-cricoid region was normal. There was no blood or old blood in the hypopharynx or larynx. The scope was removed atraumatically the patient tolerated the procedure well there is no epistaxis. Exam Initial Vital Signs Temp Pulse Resp BP Pulse Ox 97.7 F 83 18 149/58 97 12/27/18 08:37 12/27/18 08:37 12/27/18 08:37 12/27/18 08:37 12/27/18 08:37 Results - Labs 12/29/18 04:21 12/29/18 04:21 Abnormal lab results RBC 3.24 M/mcL (3.82-4.97) L 12/29/18 04:21 Hgb 9.5 g/dL (11.5-15.4) L 12/29/18 04:21 Hct 29.8 % (35.3-44.9) L 12/29/18 04:21 MPV 9.0 fL (9.4-12.4) L 12/27/18 09:03 PT 12.6 Seconds (9.4-12.1) H 12/27/18 09:42 APTT 25.6 Seconds (26.0-36.0) L 12/27/18 09:42 BUN 24 mg/dL (8-23) H 12/28/18 05:39 BUN/Creatinine Ratio 34 (6-26) H 12/28/18 05:39 Glucose 146 mg/dL (70-105) H 12/29/18 04:21 POC Glucose 155 mg/dL (70-99) H 12/28/18 11:15 Hemoglobin A1c 7.8 % (-5.6) H 12/27/18 12:48 Calculated Osmolality 310 (280-300) H 12/27/18 09:03 AST 12 Units/L (13-39) L 12/27/18 09:03 Serum Total Protein 6.1 g/dL (6.4-8.9) L 12/29/18 04:21 Albumin 3.3 g/dL (3.5-5.7) L 12/27/18 09:03 Globulin 2.2 g/dL (2.4-3.5) L 12/27/18 09:03 Vitamin B12 177 pg/mL (250-1100) L 12/27/18 09:03 Urine Clarity Cloudy (Clear) A 12/29/18 03:18 Urine Blood Trace (Negative) H 12/29/18 03:18 Urine Nitrite Positive (Negative) A 12/29/18 03:18 Ur Leukocyte Esterase Large (Negative) H 12/29/18 03:18 Urine Microscopic WBC TNTC per hpf (0-3) H 12/29/18 03:18 Ur Squamous Epith Cells Many per lpf (None-Few) H 12/29/18 03:18 Urine Bacteria Many per hpf (None-Few) H 12/29/18 03:18 Ur Culture Indicated? YES (NO) A 12/29/18 03:18 Crossmatch See Detail 12/27/18 09:03 Diabetes panel 12/29/18 Range/Units 04:21 Sodium 139 (136-145) mEq/L Potassium 3.8 (3.5-5.1) mEq/L Chloride 106 (98-107) mEq/L Carbon Dioxide 25 (23-29) mEq/L BUN 18 (8-23) mg/dL Creatinine 0.70 (0.60-1.20) mg/dL Glucose 146 H (70-105) mg/dL Calcium 8.7 (8.6-10.3) mg/dL AST 14 (13-39) Units/L ALT 16 (7-52) Units/L Alkaline Phosphatase 60 (34-104) Units/L Albumin 3.6 (3.5-5.7) g/dL Calcium panel 12/29/18 Range/Units 04:21 Calcium 8.7 (8.6-10.3) mg/dL Albumin 3.6 (3.5-5.7) g/dL Pituitary panel 12/29/18 Range/Units 04:21 Sodium 139 (136-145) mEq/L Potassium 3.8 (3.5-5.1) mEq/L Chloride 106 (98-107) mEq/L Carbon Dioxide 25 (23-29) mEq/L BUN 18 (8-23) mg/dL Creatinine 0.70 (0.60-1.20) mg/dL Glucose 146 H (70-105) mg/dL Calcium 8.7 (8.6-10.3) mg/dL Adrenal panel 12/29/18 Range/Units 04:21 Sodium 139 (136-145) mEq/L Potassium 3.8 (3.5-5.1) mEq/L Chloride 106 (98-107) mEq/L Carbon Dioxide 25 (23-29) mEq/L BUN 18 (8-23) mg/dL Creatinine 0.70 (0.60-1.20) mg/dL Glucose 146 H (70-105) mg/dL Calcium 8.7 (8.6-10.3) mg/dL Total Bilirubin 0.4 (0.3-1.0) mg/dL AST 14 (13-39) Units/L ALT 16 (7-52) Units/L Alkaline Phosphatase 60 (34-104) Units/L Albumin 3.6 (3.5-5.7) g/dL All other labs normal. Consult Discharge Plan - Plan Referrals: Placido Johnson MD [Partnered Physician] - (web request sent on 12-28-18 @ 1037) Sean Constantino CNP [Non-Partnered Physician] - 01/10/19 2:45 pm
[2018-12-29 10:54] VITALS: BP 122/72
[2018-12-29 12:08] LABS: Hematocrit 28.9 % (35.3-44.9); Hemoglobin 9.3 g/dL (11.5-15.4)
[2018-12-29] MEDS: Pantoprazole 40 MG VIAL IVP SCH (12:53)
--- NOTE | 2018-12-29 13:04 | Gastroenterology Consult Note ---
Date of Encounter: 12/29/18 Time of Encounter: 11:00 - Time Spent With Patient Total time spent is greater than 50% in coordination of care (as documented) at patient's floor/unit and/or counseling patient: GI History of Present Illness - Data of Consult Patient: known to practice within the last 3 years Consult date: 12/29/18 Requesting Physician: Mor Zelaya MD - Consult Narrative Reason for consult: Abdominal pain History of present illness: Ms. Gale is a 63 year old female Past Med Surg Social Fam HX - Past Medical History Medical history: COPD, diabetes, hyperlipidemia, hypertension, kidney stones, osteoporosis Additional medical history: osteoporosis Psychiatric history: no psych history - Past Surgical History Surgical History: cholecystectomy, herniorrhaphy, hysterectomy, ureteral stent, other Additional surgical history: PARTIAL HYSTER, LAPAROSCOPY, MARYBETH OPEN CARPAL & GUYON TUNNEL - Social History Smoking Status: Former smoker Smokeless Tobacco Status: No Alcohol use: none Drug use: none - Constitutional Vitals: Temp Pulse Resp BP Pulse Ox 98.0 F 69 16 122/72 96 12/29/18 10:54 12/29/18 10:54 12/29/18 10:54 12/29/18 10:54 12/29/18 10:54 - Psychiatric Psychiatric exam: Present: normal affect, normal mood - Skin Skin exam: Present: dry, intact, normal color, warm Results - Labs CBC & Chem 7: 12/29/18 11:50 12/29/18 04:21 Labs: Last Result 12/29/18 04:21 Calcium 8.7 Entire Visit 12/29/18 12/29/18 12/29/18 04:21 04:21 11:50 Hgb 9.5 L 9.3 L Hct 29.8 L 28.9 L Total Bilirubin 0.4 AST 14 ALT 16 - ABG ABG results: PT/INR, D-dimer PT 12.6 Seconds (9.4-12.1) H 12/27/18 09:42 Consult Discharge Plan - Plan Referrals: Placido Johnson MD [Partnered Physician] - (web request sent on 12-28-18 @ 1037) Sean Constantino CNP [Non-Partnered Physician] - 01/10/19 2:45 pm
--- NOTE | 2018-12-29 13:56 | Discharge Summary ---
<Breanne Almanza E - Last Filed: 12/29/18 13:53> - NOTES TO OUTPATIENT PROVIDER Notes to Outpatient Provider: Patient will need outpatient pill endoscopy for possible small bowel bleed Orders not resulted at time of discharge: Pending orders 12/29/18 03:18 Culture,Urine [RM] Stat Date of Encounter: 12/29/18 Time of Encounter: 10:30 - Discharge Diagnosis (1) GI bleed Priority: Primary Status: Acute Assessment and Plan: She presented to the ED after syncope that she related to an acute upper GI bleed with melena and hemoptysis Patient has not had anymore episodes of hemoptysis or melena Hemoglobin of 9.3 today Endoscopy showed esophagitis and gastritis but no acute bleeding Colonoscopy showed normal: And nonbleeding internal hemorrhoids Laryngoscope showed no signs of posterior nasal bleed Patient will be discharged home on oral Protonix daily Advance diet patient's diet Patient will need video capsule endoscopy as outpatient to visualize the small bowel Qualifiers: GI bleed type/associated pathology: melena Qualified Code(s): K92.1 - Melena (2) Descending thoracic aortic dissection Priority: Primary Status: Chronic Assessment and Plan: CTA showed descending thoracic aortic dissection No chest pain or back pain at that time Vascular surgery was consulted and recommended no intervention at that point (3) Essential hypertension Priority: Secondary Status: Chronic Assessment and Plan: Continue home medications (4) Diabetes mellitus, type 2 Priority: Secondary Status: Chronic Assessment and Plan: Patient was monitored on low-dose SSI and diabetic diet Qualifiers: Diabetes mellitus senior living insulin use: without senior living use Diabetes mellitus complication status: with hyperglycemia Qualified Code(s): E11.65 - Type 2 diabetes mellitus with hyperglycemia Hospital course: Ms. Gale is a 63 year old female asleep her son with complaints of syncope related to acute upper GI bleed with melena and hemoptysis. She had endoscopy which showed esophagitis and gastritis with no acute bleeding, colonoscopy showing normal: No bleeding and internal hemorrhoids, laryngoscope the which showed no posterior nasal bleed, CTA showed descending thoracic aortic dissection. Patient was started on Protonix drip and then changed to IV Protonix will be discharged on an oral PPI. GI was consulted to do the endoscopy and colonoscopy and would like to do a pill endoscopy outpatient to visualize the small bowel. Vascular surgery was consulted and recommended no intervention at this point for her descending thoracic aortic dissection. Her hypertension as well as diabetes were managed inpatient with her home medication as well as sliding scale insulin for her diabetes. Patient has not had any more episodes of hemoptysis or melena at this time. Patient's hemoglobin has stabilized. Discharge discussed with: patient - Time Spent with Patient Total time spent providing and/or coordinating discharge services: - Discharge Medications Prescriptions: New Omeprazole [PriLOSEC] 40 mg PO DAILY 30 Days #30 cap Continued amLODIPine [Norvasc] 10 mg PO DAILY Lisinopril [Zestril] 40 mg PO DAILY metFORMIN [Glucophage] 500 mg PO BID Metoprolol Succinate 200 mg PO DAILY Clopidogrel [Plavix] 75 mg PO DAILY Escitalopram [Lexapro] 10 mg PO DAILY hydroCHLOROthiazide [Hydrochlorothiazide] 25 mg PO DAILY Ranitidine HCl [Acid Decorator Consultant] 75 mg PO BID Ibuprofen [Ibu-200] 200 mg PO QID PRN PRN Reason: Pain Home Medications: Lisinopril [Zestril] 40 mg PO DAILY 09/17/15 [History] amLODIPine [Norvasc] 10 mg PO DAILY 09/17/15 [History] metFORMIN [Glucophage] 500 mg PO BID 09/17/15 [History] Clopidogrel [Plavix] 75 mg PO DAILY 10/17/17 [History] Escitalopram [Lexapro] 10 mg PO DAILY 10/17/17 [History] Metoprolol Succinate 200 mg PO DAILY 10/17/17 [History] Ranitidine HCl [Acid Decorator Consultant] 75 mg PO BID 10/17/17 [History] hydroCHLOROthiazide [Hydrochlorothiazide] 25 mg PO DAILY 10/17/17 [History] Ibuprofen [Ibu-200] 200 mg PO QID PRN 12/27/18 [History] Omeprazole [PriLOSEC] 40 mg PO DAILY 30 Days #30 cap 12/29/18 [Rx] Allergies/Adverse Reactions: Allergy/AdvReac Type Severity Reaction Status Date / Time No Known Allergies Allergy Verified 11/08/17 06:45 Date of admission: 12/27/18 11:17 Primary care physician: PCP NONE Consults: 12/27/18 10:34 Consult to Gastroenterology [CONS] Stat Consulting Provider: Gastroenterology Jasmina Reason for Consult: GI bleed Time Notified: 10:35 Call Completed: Yes Consult to Vascular Surgery [CONS] Stat Consulting Provider: Vascular Surgery Jasmina Reason for Consult: descending aortic dissection Time Notified: 10:35 Call Completed: Yes 12/28/18 18:23 Consult to ENT [CONS] Routine Consulting Provider: MARGE Freedman Reason for Consult: gI CONCERN FOR EPISTAXIS Call Completed: No Discharging clinician: Mor Zelaya Anticipated date of discharge: 12/29/18 - Constitutional Vitals: Temp Pulse Resp BP Pulse Ox 98.0 F 69 16 122/72 96 12/29/18 10:54 12/29/18 10:54 12/29/18 10:54 12/29/18 10:54 12/29/18 10:54 General appearance: Present: A&O X 3, answers questions appropriately Exam: General: AAO 3, no acute distress, answers questions appropriately Head: normocephalic, atraumatic Eyes: AMANDA, no icterus Cardio: RRR, no murmurs, rubs, or gallops Respiratory: CTAB, no wheezing, rhonchi, rales Abd: normal bowel sounds, no guarding or rigidity Extremities: no pedal edema, pulses equal bilaterally, warm Skin: warm, dry, intact - Patient Status Disposition: Home, Self-Care Condition: Good Functional capacity at discharge: independent ambulation Overall status at discharge: patient is back to baseline - Discharge Instructions Instructions: Gastrointestinal Bleeding (DC), Diabetes Mellitus Type 2 in Adults (DC), Peripheral Vascular Disorders (DC), Chronic Hypertension (DC) Follow Up With: Placido Johnson MD [Partnered Physician] - (web request sent on 12-28-18 @ [facility]) Sean Constantino CNP [Non-Partnered Physician] - 01/10/19 2:45 pm - Diet and Activity Activity: increase activity as tolerated Diet: advance to your usual diet <Mor Zelaya - Last Filed: 12/29/18 18:11> Orders not resulted at time of discharge: Pending orders 12/29/18 03:18 Culture,Urine [RM] Stat Date of Encounter: 12/29/18 - Discharge Diagnosis (1) Essential hypertension Status: Chronic (2) Diabetes mellitus, type 2 Status: Chronic 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 Gale is a 63 year old female - Time Spent with Patient Total time spent providing and/or coordinating discharge services: Date of admission: 12/27/18 11:17 Primary care physician: PCP NONE Consults: 12/27/18 10:34 Consult to Gastroenterology [CONS] Stat Consulting Provider: Gastroenterology Jasmina Reason for Consult: GI bleed Time Notified: 10:35 Call Completed: Yes Consult to Vascular Surgery [CONS] Stat Consulting Provider: Vascular Surgery [place] Reason for Consult: descending aortic dissection Time Notified: 10:35 Call Completed: Yes 12/28/18 18:23 Consult to ENT [CONS] Routine Consulting Provider: ENT [place] Reason for Consult: gI CONCERN FOR EPISTAXIS Call Completed: No - Constitutional Vitals: Temp Pulse Resp BP Pulse Ox 98.0 F 69 16 122/72 96 12/29/18 10:54 12/29/18 10:54 12/29/18 10:54 12/29/18 10:54 12/29/18 10:54 - Attending Attestation I saw evaluated and examined this patient and reviewed objective data including labs and my medical decision-making was reviewed with the Resident Physician/Medical Student. I agree with the documented findings, disposition and treatment plan as described except to any changes set forth below. We independ ently had [id number] contact with the patient. 63 year old female presented with acute upper GI bleed with melena and hemptysis. An EGD was done showing esophagitis and gastritis but no signs of a cute bleeding. Colonoscopy showed no acute bleeds as well. She required 1 unit PRBC transfusion. She remained hemodynamically stable after monitoring. GI was consulted and stable to go after review. She was discharged home in stable condition with need for capsule endoscopy as outpatient. Of note, a urinalysis was ordered on admission, that did not result until just now, and was consistent with UTI. Will send antibiotic prescription.
== END 2018-12-29 17:20 | disposition home or self-care (01) | DRG 241 ==
LOC: EMEROOARM 08:29 → 2NNU 11:17 → SUATTDRO 11:17 → 2NNU 11:23 → 3ANU 12-28 17:16
PROVIDERS: ADMIT Internal Medicine; ATTEND Student in an Organized Health Care Education/Training Program

== ENCOUNTER 2020-07-21 05:31 | Observation (INO) ==
[2020-07-21 06:09] LABS: Basophils % 0.4 %; Eosinophils # 0.1 K/mcL (0.0-0.6); Eosinophils % 1.4 %; Immature Granulocytes % 0.3 % (0-4); Lymphocytes # 1.5 K/mcL (0.6-4.6); Mean Corpuscular HGB Conc 31.7 g/dL (31.6-35.5); Mean Corpuscular Hemoglobin 27.6 pg (28.0-33.3); Mean Platelet Volume 9.9 fL (9.4-12.4); Monocytes # 0.5 K/mcL (0.0-1.3); Monocytes % 6.3 %; Platelet Count 238 K/mcL (140-400); Red Blood Count 4.71 M/mcL (3.82-4.97); Red Cell Distribution Width 13.3 % (11.5-14.5); Segmented Neutrophils % 70.6 %; White Blood Count 7.1 K/mcL (4.3-11.1)
[2020-07-21 06:34] LABS: BUN/Creatinine Ratio 21 (6-26); Blood Urea Nitrogen 19 mg/dL (8-23); Calcium 9.7 mg/dL (8.6-10.3); Carbon Dioxide 30 mEq/L (23-29); Chloride 96 mEq/L (98-107); Glucose 247 mg/dL (70-105); Osmolality,Calculated 287 (280-300); Sodium 133 mEq/L (136-145); Troponin I < 0.03 ng/mL (< 0.04); eGFR For African Americans > 60 (> 60); eGFR For Non-African Americans > 60 (> 60)
[2020-07-21] MEDS ORDERED: *HR* HYDROcodone/Acet 5/325 mg TABLET PO PRN (08:11)
[2020-07-21] MEDS ORDERED: Ondansetron 4 MG/2 ML VIAL IVP PRN (08:11)
[2020-07-21] MEDS ORDERED: Naloxone 0.4 MG/ML INJ IVP PRN (08:11)
[2020-07-21] MEDS ORDERED: *HR* Dextrose 50 % in Water (Vial) 50 ML VIAL IVP PRN (08:13)
[2020-07-21] MEDS ORDERED: Dextrose Gel 15 GM/37.5 ML TUBE PO PRN ×2 (08:13)
[2020-07-21] MEDS ORDERED: D5% in Water 1,000 ML IVC PRN (08:13)
[2020-07-21 08:51] LABS: Bilirubin,Urine Negative (Negative); Blood,Urine Negative (Negative); Clarity,Urine Clear (Clear); Color,Urine Light-Yellow (Yellow); Glucose,Urine (UA) 500 mg/dL (Normal); Ketones,Urine Negative (Negative); Leukocyte Esterase,Urine Trace (Negative); Nitrite,Urine Negative (Negative); PH,Urine 5.5 pH Units (5.0-8.0); Protein,Urine Negative (Neg-Trace); RBC,Urine 0-3 per hpf (0-3); Specific Gravity,Urine 1.023 (1.010-1.025); Squamous Epithelial Cell,Urine Few per hpf (None-Few); Urobilinogen,Urine Normal (Normal); WBC,Urine 0-3 per hpf (0-3)
[2020-07-21] MEDS: SUMAtriptan succinate 50 MG TABLET PO SCH (11:22)
[2020-07-21] MEDS: Insulin LISPRO 300 UNITS/3 ML VIAL SUBQ SCH ×2 (11:31→16:54)
[2020-07-21] MEDS ORDERED: *HR* Rivaroxaban 10 MG TABLET PO SCH (17:00)
[2020-07-21] MEDS: Insulin DETEMIR 100 UNIT/ML X5UNITS SUBQ SCH (20:56)
[2020-07-22 06:11] LABS: Basophils % 0.4 %; Eosinophils # 0.1 K/mcL (0.0-0.6); Eosinophils % 2.1 %; Hematocrit 42.8 % (35.3-44.9); Hemoglobin 13.5 g/dL (11.5-15.4); Immature Granulocytes % 0.3 % (0-4); Lymphocytes # 2.4 K/mcL (0.6-4.6); Mean Corpuscular HGB Conc 31.5 g/dL (31.6-35.5); Mean Corpuscular Hemoglobin 27.6 pg (28.0-33.3); Mean Corpuscular Volume 87.5 fL (83.0-100.0); Monocytes # 0.5 K/mcL (0.0-1.3); Monocytes % 6.9 %; Neutrophils # 3.8 K/mcL (1.6-8.9); Platelet Count 254 K/mcL (140-400); Red Blood Count 4.89 M/mcL (3.82-4.97); Red Cell Distribution Width 13.4 % (11.5-14.5); Segmented Neutrophils % 55.3 %; White Blood Count 6.8 K/mcL (4.3-11.1)
[2020-07-22 06:34] LABS: BUN/Creatinine Ratio 21 (6-26); Blood Urea Nitrogen 18 mg/dL (8-23); Calcium 9.9 mg/dL (8.6-10.3); Carbon Dioxide 28 mEq/L (23-29); Chloride 94 mEq/L (98-107); Glucose 186 mg/dL (70-105); Magnesium 1.7 mg/dL (1.6-2.6); Osmolality,Calculated 281 (280-300); Phosphorous 3.8 mg/dL (2.7-4.5); Potassium 3.8 mEq/L (3.5-5.1); Sodium 132 mEq/L (136-145); eGFR For African Americans > 60 (> 60); eGFR For Non-African Americans > 60 (> 60)
[2020-07-22] MEDS: Insulin DETEMIR 100 UNIT/ML X5UNITS SUBQ SCH (08:23)
[2020-07-22] MEDS: Insulin LISPRO 300 UNITS/3 ML VIAL SUBQ SCH (08:25)
[2020-07-22] MEDS: SUMAtriptan succinate 50 MG TABLET PO SCH (08:39)
[2020-07-22 08:50] LABS: Estimated Average Glucose 255 mg/dl; Hemoglobin A1C 10.5 %
[2020-07-22] MEDS ORDERED: Metoprolol XL (24 HR) Succ 50 MG TAB.ER.24H PO SCH (09:00)
[2020-07-22] MEDS ORDERED: lisinopriL 20 MG TABLET PO SCH (09:00)
[2020-07-22] MEDS ORDERED: amLODIPine 5 MG TABLET PO SCH (09:00)
[2020-07-22 11:19] VITALS: BP 145/74
== END 2020-07-22 14:56 | disposition home health service (06) ==
LOC: 3BNU 05:31 → EMEROOARM 05:31 → SUATTDRO 08:18 → 3BNU 08:40
PROVIDERS: ADMIT Internal Medicine; ATTEND Internal Medicine